=== PATIENT | male | born 1945 | race Caucasian/White ===

== ENCOUNTER 2017-03-07 09:28 | Emergency (ER) | payer MEDICARE, BC ==
[2017-03-07] MEDS ORDERED: Nitroglycerin 0.4 MG Tab.SL SL ONE (09:51)
--- NOTE | 2017-03-07 11:03 | EDM.PDOC ---
[id number] 4d CHEST PAIN Time Seen by Provider: 03/07/17 09:50 Source of Information: Reports: Patient, Family History Limitations: Reports: No limitations - History of Present Illness INITIAL COMMENTS - FREE TEXT/NARRATIVE: 71-year-old male who has had chest pain off and on chronically, he had 9 cardiac stents placed and eventually had bypass grafting last fall. Unfortunately his chest pain continues after the bypass, it is intermittent and left-sided and does not seem to be related to activity. 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 Today while in cardiac rehabilitation he was having more pain and it was more persistent than usual, and he mentioned he had pain last evening as well so they sent him to the emergency room for evaluation. He has no shortness of breath, nausea or vomiting, the pain sometimes radiates to his back , to his right chest and at times to his shoulder. He was very active yesterday working in the yard and was lifting some fairly heavy objects into his pickup. Location: Reports: chest Severity: mild Improves with: Reports: None Worsens with: Reports: None Context: Reports: Lifting Associated Symptoms: Reports: diaphoresis (He did experience some diaphoresis last evening but was also anxious which is another recurring symptoms). Denies : fever/chills, loss of appetite, malaise, nausea/vomiting, shortness of breath chest Pain Score (Numeric/FACES): 5 - Related Data Allergies Allergy/AdvReac Type Severity Reaction Status Date / Time dipyridamole Allergy Unknown Rash Verified 03/07/17 09:45 droperidol Allergy Unknown Cannot Verified 03/07/17 09:45 Remember hydrochlorothiazide Allergy Unknown Rash Verified 03/07/17 09:45 hydroxyzine Allergy Unknown Cannot Verified 03/07/17 09:45 Remember hydroxyzine HCl Allergy Unknown Cannot Verified 03/07/17 09:45 [From Vistaril] Remember hydroxyzine pamoate Allergy Unknown Cannot Verified 03/07/17 09:45 [From Vistaril] Remember Sulfa (Sulfonamide Allergy Unknown Rash Verified 03/07/17 09:45 Antibiotics) vancomycin Allergy Unknown Cannot Verified 03/07/17 09:45 Remember Iodinated Contrast Media - Allergy Hives Verified 03/07/17 09:45 Oral and [Iodinated Contrast Media - IV Dye] cisapride [Cisapride] AdvReac Unknown Slurred Verified 03/07/17 09:45 Speech cisapride monohydrate AdvReac Unknown Slurred Verified 03/07/17 09:45 [From Propulsid] Speech hydrocodone AdvReac Unknown Tachycardia Verified 03/07/17 09:45 morphine AdvReac Unknown red arm at Verified 03/07/17 09:45 iv site nifedipine [From Procardia] AdvReac Unknown Tachycardia Verified 03/07/17 09:45 Krzkrqk-Xwo-Pgq Reductase AdvReac Unknown Muscle Verified 03/07/17 09:45 Inhibitor Aches cyclobenzaprine HCl AdvReac Blurred Verified 03/07/17 09:45 [From Flexeril] Vision gabapentin [From Neurontin] AdvReac Hallucinati Verified 03/07/17 09:45 ons Home Meds: Home Meds Lansoprazole [Prevacid] 30 mg PO BID 03/03/14 [History] LORazepam [Ativan] 0.5 - 1 tab PO Q6H PRN 05/08/14 [History] Clopidogrel [Plavix] 1 tab PO DAILY 09/05/15 [History] Metoprolol Succinate [Toprol XL] 200 mg PO BID tab.er 11/19/15 [Rx] Nitroglycerin [Nitrostat] 0.4 mg SL ASDIRECTED PRN #0 tab.sl 11/19/15 [Rx] Rosuvastatin [Crestor] 20 mg PO BEDTIME tablet 11/19/15 [Rx] Acetaminophen [Non-Aspirin Pain Relief] 650 mg PO Q6H PRN 12/25/15 [History] Ascorbate Calcium [Vitamin C] 500 mg PO DAILY 12/25/15 [History] Cholecalciferol (Vitamin D3) [Vitamin D3] 2,000 units PO DAILY 12/25/15 [History ] Cyanocobalamin (Vitamin B-12) [B-12] 1,000 mcg PO DAILY 12/25/15 [History] Furosemide 20 mg PO DAILY PRN 12/25/15 [History] HYDROmorphone HCl [Dilaudid] 2 mg PO Q6H PRN 12/25/15 [History] Lisinopril 10 mg PO DAILY 12/25/15 [History] Multivitamin [Multivitamins] 1 cap PO DAILY 12/25/15 [History] Temazepam 15 mg PO BEDTIME 12/25/15 [History] Warfarin [Coumadin] 2.5 mg PO DAILY 12/25/15 [History] Warfarin [Coumadin] 3 mg PO ASDIRECTED 12/25/15 [History] lamoTRIgine [Lamictal] 100 mg PO DAILY 12/25/15 [History] glipiZIDE [Glucotrol XL] 10 mg PO BID 02/03/16 [History] Topiramate [Topamax] 100 mg PO DAILY 03/07/17 [History] Past Medical History HEENT History: Reports: Impaired vision, Other (see below) Other HEENT History: ringing in right ear. tunnel vision post cva Cardiovascular History: Reports: Angina, Heart valve replacement, High cholesterol, Hypertension, [place], Stents Other Cardiovascular History: 08/22/15 2 stents and 3 more stents .aortic valve in 1974 and 1991. last stents in August, total now. angio 01/30/16 Respiratory History: Reports: Sleep apnea Other Respiratory History: Cpap Gastrointestinal History: Reports: Other (see below) Other Gastrointestinal History: drainage of Lymphocele in in february 2015 and june 2015 in abd Genitourinary History: Reports: Prostate disorder Musculoskeletal History: Reports: Fracture, Other (see below) Other Musculoskeletal History: fx collarbone, fx femur Neurological History: Reports: CVA, Seizure Other Neuro History: cva 2013 Psychiatric History: Reports: Anxiety, Depression Endocrine/Metabolic History: Reports: Diabetes, type II Hematologic History: Reports: Blood transfusion(s) - Infectious Disease History Infectious Disease History: Reports: Chicken pox Other Infectious Disease History: unknown - Past Surgical History Cardiovascular Surgical History: Reports: Coronary artery stent, Valve replacement GI Surgical History: Reports: Cholecystectomy Other Endocrine Surgeries/Procedures: lympho drainage. Musculoskeletal Surgical History: Reports: Hip replacement Other Musculoskeletal Surgeries/Procedures:: right hip 2011 Social & Family History - Tobacco Use Smoking Status *Q: Never Smoker Years of Tobacco use: 2 Used Tobacco, but Quit: Yes Month Tobacco Last Used: Second Hand Smoke Exposure: No - Caffeine Use Caffeine Use: Reports: Coffee - Alcohol Use Days Per Week of Alcohol Use: 1 Number of Drinks Per Day: 2 Total Drinks Per Week: 2 - Recreational Drug Use Recreational Drug Use: No ED ROS GENERAL - Review of Systems Review Of Systems: See Below Constitutional: Denies: fever, chills, malaise HEENT: Reports: No symptoms Respiratory: Denies: Shortness of Breath Cardiovascular: Reports: Chest pain GI/Abdominal: Denies: Abdominal pain, Nausea, Vomiting : Reports: no symptoms Musculoskeletal: Reports: no symptoms Skin: Reports: pallor, diaphoresis (Last evening) Neurological: Denies: Headache Psychiatric: Reports: Anxiety ED EXAM, GENERAL - Physical Exam Exam: See Below Exam Limited By: No limitations General Appearance: alert, no apparent distress Eye Exam: bilateral eye: normal inspection Respiratory/Chest: no respiratory distress, lungs clear Cardiovascular: regular rate, rhythm. No: extra beats GI/Abdominal: soft, non tender Extremities: normal inspection. No: pedal edema Neurological: alert, oriented, no motor/sensory deficits Psychiatric: anxious Skin Exam: Warm, Dry EKG INTERPRETATION EKG Date: 03/07/17 Rhythm: NSR QRS: RBBB (Consistent with past EKGs, no change) Course - Vital Signs Last Recorded V/S: Last Vital Signs Temp 96.6 F 03/07/17 09:43 Pulse 71 03/07/17 10:09 Resp 12 03/07/17 11:08 BP 140/67 03/07/17 11:08 Pulse Ox 96 03/07/17 11:08 - Orders/Labs/Meds Orders: Active Orders 24 hr Category Date Time Status EKG Documentation Completion [RC] ASDIRECTED Care 03/07/17 09:51 Active EKG 12 Lead [EK] Routine Ther 03/07/17 09:51 Ordered Labs: Laboratory Tests 03/07/17 03/07/17 Range/Units 10:03 10:03 WBC 4.2 L (4.5-11.0) K/uL RBC 5.10 (4.30-5.90) M/uL Hgb 15.3 H D (12.0-15.0) g/dL Hct 46.6 (40.0-54.0) % MCV 91 (80-98) fL MCH 30 (27-31) pg MCHC 33 (32-36) % Plt Count 173 (150-400) K/uL Neut % (Auto) 42 (36-66) % Lymph % (Auto) 33 (24-44) % [place] % (Auto) 17 H (2-6) % Eos % (Auto) 5 H (2-4) % Baso % (Auto) 2 H (0-1) % Sodium 141 (140-148) mmol/L Potassium 4.1 (3.6-5.2) mmol/L Chloride 108 (100-108) mmol/L Carbon Dioxide 23 (21-32) mmol/L Anion Gap 10.3 (5.0-14.0) mmol/L BUN 21 H (7-18) mg/dL Creatinine 1.1 (0.8-1.3) mg/dL Est Cr Clr Drug Dosing TNP Estimated GFR (MDRD) > 60 (>60) Glucose 139 H (74-106) mg/dL Calcium 9.1 (8.5-10.1) mg/dL Troponin I < 0.017 (0.000-0.056) ng/mL Meds: Medications Discontinued Medications Generic Name Dose Route Start Last Admin Trade Name Freq PRN Reason Stop Dose Admin Nitroglycerin 0.4 mg 03/07/17 09:51 03/07/17 09:57 Nitrostat SL 03/07/17 09:52 0.4 mg ONETIME ONE Administration - Re-Assessments/Exams Free Text/Narrative Re-Assessment/Exam: 03/07/17 11:38 EKG was stable and consistent with past EKGs. We tried a sublingual nitroglycerin which actually increased his pain for 10-15 minutes, and then improved but then returned to his previous level that he was transferred to the emergency room for. He looked entirely comfortable throughout his ER visit. Troponin was 0, rest of his labs were reassuring. Patient was discharged with 12 doses of 2 mg Dilaudid that can be taken as needed, these have been very helpful for him in the past. He can return anytime if worsening. Departure - Departure Time of Disposition: 11:18 Disposition: Home, Self-Care 01 Condition: good Clinical Impression: Acute chest wall pain, Atypical chest pain Instructions: Nonspecific Chest Pain, Flin-yb-Ozbs, Angina Pectoris, Easy-to- Read Referrals: Chano Esparza MD [Primary Care Provider] - Forms: ED Department Discharge Care Plan Goals: Continue your current medications and add Dilaudid for pain if needed. Increase activity as tolerated and return anytime if worsening or concerns. - My Orders Last 24 Hours: My Active Orders 03/07/17 09:51 EKG Documentation Completion [RC] ASDIRECTED EKG 12 Lead [EK] Routine - Assessment/Plan Last 24 Hours: My Active Orders 03/07/17 09:51 EKG Documentation Completion [RC] ASDIRECTED EKG 12 Lead [EK] Routine
[2017-03-07 11:17] VITALS: BP 140/67
== END 2017-03-07 11:10 | disposition home or self-care (01) ==
LOC: JP.ED 09:28
DX: R07.89 Other chest pain (principal); I10 Essential (primary) hypertension; E78.00 Pure hypercholesterolemia, unspecified; E11.9 Type 2 diabetes mellitus without complications; Z95.2 Presence of prosthetic heart valve; Z87.891 Personal history of nicotine dependence; Z90.49 Acquired absence of other specified parts of digestive tract; Z86.73 Personal history of transient ischemic attack (TIA), and cerebral infarction without residual deficits; Z96.649 Presence of unspecified artificial hip joint; Z79.01 Long term (current) use of anticoagulants; Z88.6 Allergy status to analgesic agent; Z88.2 Allergy status to sulfonamides; Z88.8 Allergy status to other drugs, medicaments and biological substances; Z79.899 Other long term (current) drug therapy; Z79.84 Long term (current) use of oral hypoglycemic drugs; Z91.041 Radiographic dye allergy status
CPT/HCPCS: 36415; 80048; 84484; 85025; 93005; 99285; A9270; 93010; 99284

== ENCOUNTER 2017-03-09 10:44 | Emergency (ER) | payer MEDICARE, BC ==
[2017-03-09] MEDS ORDERED: Aspirin 81 MG Tab.Chew PO ONE (10:55)
[2017-03-09] MEDS ORDERED: Nitroglycerin 0.4 MG Tab.SL SL ONE (11:06)
--- NOTE | 2017-03-09 11:08 | EDM.PDOC ---
ED HISTORY OF PRESENT ILLNESS - General Chief Complaint: Chest Pain Stated Complaint: CHEST DISCOMFORT Time Seen by Provider: 03/09/17 11:04 Source: Reports: Patient, Family History Limitations: Reports: No limitations - History of Present Illness INITIAL COMMENTS - FREE TEXT/NARRATIVE: pt has had chest pain since he left the er on Friday. He has been sob. He has not beeen sweaty. He has had 3 nitros prior to arrival and he got some relief but his pain remains at a 6. He had a bypass done in Jul of this year. Timing/Duration: Reports: Day(s):, Waxing/waning Severity: moderate Location, General: Reports: chest Associated Symptoms: Reports: chest pain - Related Data Allergies/ADRs: Allergies Allergy/AdvReac Type Severity Reaction Status Date / Time dipyridamole Allergy Unknown Rash Verified 03/09/17 10:50 droperidol Allergy Unknown Cannot Verified 03/09/17 10:50 Remember hydrochlorothiazide Allergy Unknown Rash Verified 03/09/17 10:50 hydroxyzine Allergy Unknown Cannot Verified 03/09/17 10:50 Remember hydroxyzine HCl Allergy Unknown Cannot Verified 03/09/17 10:50 [From Vistaril] Remember hydroxyzine pamoate Allergy Unknown Cannot Verified 03/09/17 10:50 [From Vistaril] Remember Sulfa (Sulfonamide Allergy Unknown Rash Verified 03/09/17 10:50 Antibiotics) vancomycin Allergy Unknown Cannot Verified 03/09/17 10:50 Remember Iodinated Contrast Media - Allergy Hives Verified 03/09/17 10:50 Oral and [Iodinated Contrast Media - IV Dye] cisapride [Cisapride] AdvReac Unknown Slurred Verified 03/09/17 10:50 Speech cisapride monohydrate AdvReac Unknown Slurred Verified 03/09/17 10:50 [From Propulsid] Speech hydrocodone AdvReac Unknown Tachycardia Verified 03/09/17 10:50 morphine AdvReac Unknown red arm at Verified 03/09/17 10:50 iv site nifedipine [From Procardia] AdvReac Unknown Tachycardia Verified 03/09/17 10:50 Gawrzta-Dwt-Gvf Reductase AdvReac Unknown Muscle Verified 03/09/17 10:50 Inhibitor Aches cyclobenzaprine HCl AdvReac Blurred Verified 03/09/17 10:50 [From Flexeril] Vision gabapentin [From Neurontin] AdvReac Hallucinati Verified 03/09/17 10:50 ons Home Meds: Home Meds Lansoprazole [Prevacid] 30 mg PO BID 03/03/14 [History] LORazepam [Ativan] 0.5 - 1 tab PO Q6H PRN 05/08/14 [History] Clopidogrel [Plavix] 1 tab PO DAILY 09/05/15 [History] Metoprolol Succinate [Toprol XL] 200 mg PO BID tab.er 11/19/15 [Rx] Nitroglycerin [Nitrostat] 0.4 mg SL ASDIRECTED PRN #0 tab.sl 11/19/15 [Rx] Rosuvastatin [Crestor] 20 mg PO BEDTIME tablet 11/19/15 [Rx] Acetaminophen [Non-Aspirin Pain Relief] 650 mg PO Q6H PRN 12/25/15 [History] Ascorbate Calcium [Vitamin C] 500 mg PO DAILY 12/25/15 [History] Cholecalciferol (Vitamin D3) [Vitamin D3] 2,000 units PO DAILY 12/25/15 [History ] Cyanocobalamin (Vitamin B-12) [B-12] 1,000 mcg PO DAILY 12/25/15 [History] Furosemide 20 mg PO DAILY PRN 12/25/15 [History] HYDROmorphone HCl [Dilaudid] 2 mg PO Q6H PRN 12/25/15 [History] Lisinopril 10 mg PO DAILY 12/25/15 [History] Multivitamin [Multivitamins] 1 cap PO DAILY 12/25/15 [History] Temazepam 15 mg PO BEDTIME 12/25/15 [History] Warfarin [Coumadin] 2.5 mg PO DAILY 12/25/15 [History] Warfarin [Coumadin] 3 mg PO ASDIRECTED 12/25/15 [History] lamoTRIgine [Lamictal] 100 mg PO DAILY 12/25/15 [History] glipiZIDE [Glucotrol XL] 10 mg PO BID 02/03/16 [History] Topiramate [Topamax] 100 mg PO DAILY 03/07/17 [History] Past Medical History HEENT History: Reports: Impaired vision, Other (see below) Other HEENT History: ringing in right ear. tunnel vision post cva Cardiovascular History: Reports: Angina, Heart valve replacement, High cholesterol, Hypertension, [place], Stents Other Cardiovascular History: 08/22/15 2 stents and 3 more stents .aortic valve in 1974 and 1991. last stents in 2014, total now. angio 01/30/16 Respiratory History: Reports: Sleep apnea Other Respiratory History: Cpap Gastrointestinal History: Reports: Other (see below) Other Gastrointestinal History: drainage of Lymphocele in in february 2015 and june 2015 in abd Genitourinary History: Reports: Prostate disorder Musculoskeletal History: Reports: Fracture, Other (see below) Other Musculoskeletal History: fx collarbone, fx femur Neurological History: Reports: CVA, Seizure Other Neuro History: cva 2013 Psychiatric History: Reports: Anxiety, Depression Endocrine/Metabolic History: Reports: Diabetes, type II Hematologic History: Reports: Blood transfusion(s) - Infectious Disease History Infectious Disease History: Reports: Chicken pox Other Infectious Disease History: unknown - Past Surgical History Cardiovascular Surgical History: Reports: Coronary artery stent, Valve replacement GI Surgical History: Reports: Cholecystectomy Other Endocrine Surgeries/Procedures: lympho drainage. Musculoskeletal Surgical History: Reports: Hip replacement Other Musculoskeletal Surgeries/Procedures:: right hip 2011 Social & Family History - Tobacco Use Smoking Status *Q: Never Smoker Years of Tobacco use: 2 Used Tobacco, but Quit: Yes Month Tobacco Last Used: Second Hand Smoke Exposure: No - Caffeine Use Caffeine Use: Reports: Coffee - Alcohol Use Days Per Week of Alcohol Use: 1 Number of Drinks Per Day: 2 Total Drinks Per Week: 2 - Recreational Drug Use Recreational Drug Use: No ED ROS GENERAL - Review of Systems Review Of Systems: See Below Constitutional: Reports: no symptoms HEENT: Reports: No symptoms Respiratory: Reports: Shortness of Breath Cardiovascular: Reports: Chest pain, Other ( pain in left chest and radiates to his neck. ) GI/Abdominal: Reports: No symptoms : Reports: no symptoms Musculoskeletal: Reports: no symptoms Skin: Reports: no symptoms ED EXAM, GENERAL - Physical Exam Exam: See Below Free Text/Narrative:: P returns with chest pain. He has had pain since Friday. He has been sob. He took 3 nitros and got some relief. Exam Limited By: No limitations General Appearance: alert, moderate distress, other ( rating his pain at a 5. ) Ears: normal TMs Nose: normal inspection Throat/Mouth: Normal inspection Head: atraumatic Neck: normal inspection Respiratory/Chest: no respiratory distress, rales, other (pt has a few rales at the lung bases. ) Cardiovascular: regular rate, rhythm GI/Abdominal: soft, non tender (Male) Exam: Deferred Rectal (Males) Exam: Deferred Back Exam: normal inspection Extremities: normal inspection, other (pulses plus 2) Neurological: alert, oriented, normal cognition Psychiatric: anxious Course - Vital Signs Last Recorded V/S: Last Vital Signs Temp 36.3 C 03/09/17 10:55 Pulse 74 03/09/17 11:40 Resp 16 03/09/17 11:14 BP 129/70 03/09/17 11:40 Pulse Ox 94 L 03/09/17 11:40 - Orders/Labs/Meds Orders: Active Orders 24 hr Category Date Time Status EKG Documentation Completion [RC] ASDIRECTED Care 03/09/17 10:53 Active Chest 1V Frontal [CR] Stat Exams 03/09/17 11:03 Taken Nitroglycerin/D5W [Nitroglycerin 25 MG/D5W 250 ML] Med 03/09/17 11:30 Active 25 mg in 250 ml IV TITRATE EKG 12 Lead [EK] Routine Ther 03/09/17 10:53 Ordered Medication Orders Nitroglycerin/Dextrose (Nitroglycerin 25 Mg/D5w 250 Ml) 25 mg in 250 mls @ 6 mls/hr IV TITRATE DEVON; 10 MCG/MIN PRN Reason: Protocol Last Admin: 03/09/17 11:24 Dose: 10 mcg/min, 6 mls/hr Labs: Laboratory Tests 03/09/17 03/09/17 03/09/17 Range/Units 10:59 10:59 10:59 WBC 4.5 (4.5-11.0) K/uL RBC 4.96 (4.30-5.90) M/uL Hgb 14.9 (12.0-15.0) g/dL Hct 45.5 (40.0-54.0) % MCV 92 (80-98) fL MCH 30 (27-31) pg MCHC 33 (32-36) % Plt Count 182 (150-400) K/uL Neut % (Auto) 49 (36-66) % Lymph % (Auto) 31 (24-44) % [place] % (Auto) 14 H (2-6) % Eos % (Auto) 5 H (2-4) % Baso % (Auto) 1 (0-1) % PT (9.5-12.0) sec INR (0.80-1.20) Sodium 143 (140-148) mmol/L Potassium 4.0 (3.6-5.2) mmol/L Chloride 106 (100-108) mmol/L Carbon Dioxide 25 (21-32) mmol/L Anion Gap 11.7 (5.0-14.0) mmol/L BUN 26 H (7-18) mg/dL Creatinine 1.3 (0.8-1.3) mg/dL Est Cr Clr Drug Dosing 52.12 mL/min Estimated GFR (MDRD) 54 L (>60) Glucose 231 H (74-106) mg/dL Calcium 8.5 (8.5-10.1) mg/dL Total Bilirubin 0.7 (0.2-1.0) mg/dL AST 28 (15-37) U/L ALT 35 (12-78) U/L Alkaline Phosphatase 96 (46-116) U/L Creatine Kinase 174 (39-308) U/L Troponin I < 0.017 (0.000-0.056) ng/mL Dpt-P-Rqqhgxslsgl Pept (5-125) pg/mL Total Protein 7.4 (6.4-8.2) g/dL Albumin 3.6 (3.4-5.0) g/dL Globulin 3.8 H (2.3-3.5) g/dL Albumin/Globulin Ratio 1.0 L (1.2-2.2) 03/09/17 03/09/17 Range/Units 10:59 10:59 WBC (4.5-11.0) K/uL RBC (4.30-5.90) M/uL Hgb (12.0-15.0) g/dL Hct (40.0-54.0) % MCV (80-98) fL MCH (27-31) pg MCHC (32-36) % Plt Count (150-400) K/uL Neut % (Auto) (36-66) % Lymph % (Auto) (24-44) % [place] % (Auto) (2-6) % Eos % (Auto) (2-4) % Baso % (Auto) (0-1) % PT 49.4 H (9.5-12.0) sec INR 4.45 H* D (0.80-1.20) Sodium (140-148) mmol/L Potassium (3.6-5.2) mmol/L Chloride (100-108) mmol/L Carbon Dioxide (21-32) mmol/L Anion Gap (5.0-14.0) mmol/L BUN (7-18) mg/dL Creatinine (0.8-1.3) mg/dL Est Cr Clr Drug Dosing mL/min Estimated GFR (MDRD) (>60) Glucose (74-106) mg/dL Calcium (8.5-10.1) mg/dL Total Bilirubin (0.2-1.0) mg/dL AST (15-37) U/L ALT (12-78) U/L Alkaline Phosphatase (46-116) U/L Creatine Kinase (39-308) U/L Troponin I (0.000-0.056) ng/mL Haj-S-Nrrwanffoes Pept 192 H (5-125) pg/mL Total Protein (6.4-8.2) g/dL Albumin (3.4-5.0) g/dL Globulin (2.3-3.5) g/dL Albumin/Globulin Ratio (1.2-2.2) Meds: Medications Generic Name Dose Route Start Last Admin Trade Name Freq PRN Reason Stop Dose Admin Nitroglycerin/Dextrose 25 mg in 250 mls @ 6 mls/hr 03/09/17 11:30 03/09/17 11 :24 Nitroglycerin 25 Mg/D5w 250 Ml IV 10 mcg/min TITRATE DEVON 6 mls/hr Protocol Administration 10 MCG/MIN Discontinued Medications Generic Name Dose Route Start Last Admin Trade Name Freq PRN Reason Stop Dose Admin Aspirin 324 mg 03/09/17 10:55 03/09/17 11:00 Aspirin PO 03/09/17 10:56 324 mg ONETIME ONE Administration Hydromorphone HCl 0.5 mg 03/09/17 11:16 03/09/17 11:18 Dilaudid IVPUSH 03/09/17 11:17 0.5 mg ONETIME ONE Administration Hydromorphone HCl 0.5 mg 03/09/17 11:55 Dilaudid IVPUSH 03/09/17 11:56 ONETIME ONE Nitroglycerin 0.4 mg 03/09/17 11:06 03/09/17 11:08 Nitrostat SL 03/09/17 11:07 0.4 mg ONETIME ONE Administration - Re-Assessments/Exams Free Text/Narrative Re-Assessment/Exam: 03/09/17 11:19 pt has an EKG which has not changed since Friday. He continues to rate his pain as a 6-7. He was given 1 more nitro. He had 3 just prior to arrival. He had minimal relief. He was given baby asa , a nitro drip was started. He was given dilaudid .5 Iv. His chest xray does not show effusions or a infiltrate. 03/09/17 11:56 pt has pain at a 3 after the dilaudid. he had normal cardiac enzymes. His bs is 231, his inr is greater than 4 at this time. Departure - Departure Time of Disposition: 11:58 Disposition: Home, Self-Care 01 Condition: fair Clinical Impression: Atypical chest pain, Coronary artery disease Referrals: PCP,None [Primary Care Provider] - Forms: ED Department Discharge Care Plan Goals: transfer to - My Orders Last 24 Hours: My Active Orders 03/09/17 10:53 EKG Documentation Completion [RC] ASDIRECTED EKG 12 Lead [EK] Routine 03/09/17 11:03 Chest 1V Frontal [CR] Stat 03/09/17 11:30 Nitroglycerin/D5W [Nitroglycerin 25 MG/D5W 250 ML] 25 mg in 250 ml IV TITRATE - Assessment/Plan Last 24 Hours: My Active Orders 03/09/17 10:53 EKG Documentation Completion [RC] ASDIRECTED EKG 12 Lead [EK] Routine 03/09/17 11:03 Chest 1V Frontal [CR] Stat 03/09/17 11:30 Nitroglycerin/D5W [Nitroglycerin 25 MG/D5W 250 ML] 25 mg in 250 ml IV TITRATE
[2017-03-09] MEDS ORDERED: HYDROmorphone 0.5 MG/0.5 ML Syringe IVPUSH ONE ×2 (11:16→11:55)
[2017-03-09] MEDS ORDERED: Nitroglycerin/D5W 25 MG/250 ML BOTTLE IV SCH (11:30)
[2017-03-09 12:08] VITALS: BP 125/69
--- NOTE | 2017-03-10 10:11 | CR ---
Portable chest Comparison: November 2010. The heart and vascular structures are within normal limits. There are no infiltrates or effusions. T here are intact sternal wires. There has been development of a nodular density in the central right lung. The density measures 1.4 cm. There are calcified granulomas in the left lung base. Impression: 1. No acute findings of the chest. 2. Possible pulmonary nodule central right lung. A unenhanced chest CT is recommended for further ev aluation.
== END 2017-03-09 12:40 ==
LOC: JP.ED 10:44
DX: R07.89 Other chest pain (principal); I25.10 Atherosclerotic heart disease of native coronary artery without angina pectoris; I20.9 Angina pectoris, unspecified; I25.2 Old myocardial infarction; R06.02 Shortness of breath; I10 Essential (primary) hypertension; E78.00 Pure hypercholesterolemia, unspecified; F41.9 Anxiety disorder, unspecified; F32.9 Major depressive disorder, single episode, unspecified; E11.9 Type 2 diabetes mellitus without complications; Z79.01 Long term (current) use of anticoagulants; Z79.02 Long term (current) use of antithrombotics/antiplatelets; Z79.899 Other long term (current) drug therapy; Z88.1 Allergy status to other antibiotic agents; Z88.2 Allergy status to sulfonamides; Z88.5 Allergy status to narcotic agent; Z88.8 Allergy status to other drugs, medicaments and biological substances; Z91.041 Radiographic dye allergy status; Z95.5 Presence of coronary angioplasty implant and graft; Z95.2 Presence of prosthetic heart valve; Z90.49 Acquired absence of other specified parts of digestive tract; Z96.641 Presence of right artificial hip joint
CPT/HCPCS: 36415; 71010; 80053; 82550; 83880; 84484; 85025; 85610; 93005; 93010; 96374; 96376; 99284; 99285; A9270; J1170

== ENCOUNTER 2017-06-08 08:43 | Emergency (ER) | payer MEDICARE, BC ==
[2017-06-08 08:50] VITALS: BP 186/90
--- NOTE | 2017-06-08 09:23 | EDM.PDOC ---
[id number]: SOB/FLUID RETENTION Time Seen by Provider: 06/08/17 09:00 Source of Information: Reports: Patient, Family History Limitations: Reports: No Limitations - History of Present Illness INITIAL COMMENTS - FREE TEXT/NARRATIVE: 71-year-old male with chronic CHF has been more short of breath over the last few nights. His is given him some extra Lasix and is now feeling much better but she just wanted him checked. No significant chest pain. He feels it' s difficult to lay flat. No peripheral edema. Onset: Gradual (Over the past several days) Severity: Moderate Improves with: Reports: Other (Diuretic seems to improve his condition) Worsens with: Reports: Other (Laying flat is much worse) Associated Symptoms: Reports: Shortness of Breath. Denies: Chest Pain, Cough, Fever/Chills Left Middle Chest Pain Score (Numeric/FACES): 5 - Related Data Allergies Allergy/AdvReac Type Severity Reaction Status Date / Time dipyridamole Allergy Unknown Rash Verified 03/09/17 10:50 droperidol Allergy Unknown Cannot Verified 03/09/17 10:50 Remember hydrochlorothiazide Allergy Unknown Rash Verified 03/09/17 10:50 hydroxyzine Allergy Unknown Cannot Verified 03/09/17 10:50 Remember hydroxyzine HCl Allergy Unknown Cannot Verified 03/09/17 10:50 [From Vistaril] Remember hydroxyzine pamoate Allergy Unknown Cannot Verified 03/09/17 10:50 [From Vistaril] Remember Sulfa (Sulfonamide Allergy Unknown Rash Verified 03/09/17 10:50 Antibiotics) vancomycin Allergy Unknown Cannot Verified 03/09/17 10:50 Remember Iodinated Contrast- Oral and Allergy Hives Verified 03/09/17 10:50 IV Dye [Iodinated Contrast Media - IV Dye] cisapride [Cisapride] AdvReac Unknown Slurred Verified 03/09/17 10:50 Speech cisapride monohydrate AdvReac Unknown Slurred Verified 03/09/17 10:50 [From Propulsid] Speech hydrocodone AdvReac Unknown Tachycardia Verified 03/09/17 10:50 morphine AdvReac Unknown red arm at Verified 03/09/17 10:50 iv site nifedipine [From Procardia] AdvReac Unknown Tachycardia Verified 03/09/17 10:50 Akusdec-Gcl-Eab Reductase AdvReac Unknown Muscle Verified 03/09/17 10:50 Inhibitor Aches cyclobenzaprine HCl AdvReac Blurred Verified 03/09/17 10:50 [From Flexeril] Vision gabapentin [From Neurontin] AdvReac Hallucinati Verified 03/09/17 10:50 ons Home Meds: Home Meds Lansoprazole [Prevacid] 30 mg PO BID 03/03/14 [History] LORazepam [Ativan] 0.5 - 1 tab PO Q6H PRN 05/08/14 [History] Clopidogrel [Plavix] 1 tab PO DAILY 09/05/15 [History] Metoprolol Succinate [Toprol XL] 200 mg PO BID tab.er 11/19/15 [Rx] Nitroglycerin [Nitrostat] 0.4 mg SL ASDIRECTED PRN #0 tab.sl 11/19/15 [Rx] Rosuvastatin [Crestor] 20 mg PO BEDTIME tablet 11/19/15 [Rx] Acetaminophen [Non-Aspirin Pain Relief] 650 mg PO Q6H PRN 12/25/15 [History] Ascorbate Calcium [Vitamin C] 500 mg PO DAILY 12/25/15 [History] Cholecalciferol (Vitamin D3) [Vitamin D3] 2,000 units PO DAILY 12/25/15 [History ] Cyanocobalamin (Vitamin B-12) [B-12] 1,000 mcg PO DAILY 12/25/15 [History] Furosemide 20 mg PO DAILY PRN 12/25/15 [History] HYDROmorphone HCl [Dilaudid] 2 mg PO Q6H PRN 12/25/15 [History] Lisinopril 5 mg PO BID 12/25/15 [History] Multivitamin [Multivitamins] 1 cap PO DAILY 12/25/15 [History] Temazepam 15 mg PO BEDTIME 12/25/15 [History] Warfarin [Coumadin] 3 mg PO DAILY 12/25/15 [History] Warfarin [Coumadin] 3.5 mg PO ASDIRECTED 12/25/15 [History] lamoTRIgine [Lamictal] 100 mg PO DAILY 12/25/15 [History] glipiZIDE [Glucotrol XL] 10 mg PO BID 02/03/16 [History] Isosorbide Mononitrate [Isosorbide Mononitrate ER] 30 mg PO DAILY 06/08/17 [ History] amLODIPine [Norvasc] 2.5 mg PO DAILY 06/08/17 [History] Past Medical History HEENT History: Reports: Impaired Vision, Other (See Below) Other HEENT History: ringing in right ear. tunnel vision post cva Cardiovascular History: Reports: Angina, Heart Valve Replacement, High Cholesterol, Hypertension, [place], Stents Other Cardiovascular History: 08/22/15 2 stents and 3 more stents .aortic valve in 1974 and 1991. last stents in August, total now. angio 01/30/16 Respiratory History: Reports: Sleep Apnea Other Respiratory History: Cpap Gastrointestinal History: Reports: Other (See Below) Other Gastrointestinal History: drainage of Lymphocele in in february 2015 and june 2015 in abd Genitourinary History: Reports: Prostate Disorder Musculoskeletal History: Reports: Fracture, Other (See Below) Other Musculoskeletal History: fx collarbone, fx femur Neurological History: Reports: CVA, Seizure Other Neuro History: cva 2013 Psychiatric History: Reports: Anxiety, Depression Endocrine/Metabolic History: Reports: Diabetes, Type II Hematologic History: Reports: Blood Transfusion(s) - Infectious Disease History Infectious Disease History: Reports: Chicken Pox, Measles, Mumps Other Infectious Disease History: unknown - Past Surgical History Cardiovascular Surgical History: Reports: Coronary Artery Stent, Valve Replacement Musculoskeletal Surgical History: Reports: Hip Replacement Social & Family History - Tobacco Use Smoking Status *Q: Never Smoker Years of Tobacco use: 2 Used Tobacco, but Quit: Yes Month Tobacco Last Used: Second Hand Smoke Exposure: No - Caffeine Use Caffeine Use: Reports: Coffee - Alcohol Use Days Per Week of Alcohol Use: 1 Number of Drinks Per Day: 2 Total Drinks Per Week: 2 - Recreational Drug Use Recreational Drug Use: No ED ROS GENERAL - Review of Systems Review Of Systems: See Below Constitutional: Denies: Fever, Chills Respiratory: Reports: Shortness of Breath. Denies: Cough Cardiovascular: Denies: Chest Pain GI/Abdominal: Denies: Abdominal Pain, Nausea, Vomiting Skin: Reports: No Symptoms Neurological: Reports: No Symptoms ED EXAM, GENERAL - Physical Exam Exam: See Below Exam Limited By: No Limitations General Appearance: Alert, No Apparent Distress Respiratory/Chest: No Respiratory Distress, Lungs Clear Cardiovascular: Regular Rate, Rhythm GI/Abdominal: Non-Tender Extremities: Normal Inspection. No: Pedal Edema Neurological: Alert, Oriented Psychiatric: Normal Affect, Normal Mood Course - Vital Signs Last Recorded V/S: Last Vital Signs Temp 97.2 F 06/08/17 08:49 Pulse 70 06/08/17 08:49 Resp 20 06/08/17 08:49 BP 186/90 H 06/08/17 08:49 Pulse Ox 98 06/08/17 08:49 - Orders/Labs/Meds Orders: Active Orders 24 hr Category Date Time Status EKG Documentation Completion [RC] ASDIRECTED Care 06/08/17 09:58 Active EKG 12 Lead [EK] Routine Ther 06/08/17 09:58 Ordered - Re-Assessments/Exams Free Text/Narrative Re-Assessment/Exam: 06/08/17 09:29 Lungs are clear, O2 saturations are 100% on room air and the patient is in no respiratory distress. He has no peripheral edema. EKG shows a stable bundle- branch block. I reassured the patient and his , encouraged her to give him the extra Lasix for just a few more days and return if worsening or concerns. Departure - Departure Time of Disposition: 09:52 Disposition: Home, Self-Care 01 Condition: Good Clinical Impression: Congestive heart failure Qualifiers: Congestive heart failure type: combined Congestive heart failure chronicity: acute on chronic Qualified Code(s): I50.43 - Acute on chronic combined systolic (congestive) and diastolic (congestive) heart failure Instructions: Shortness of Breath, [id number] Referrals: Chano Esparza MD [Primary Care Provider] - Forms: ED Department Discharge Care Plan Goals: Continue with extra Lasix for 2 more days, avoid salt, increase activity as tolerated and return if worsening or concerns. - My Orders Last 24 Hours: My Active Orders 06/08/17 09:58 EKG Documentation Completion [RC] ASDIRECTED EKG 12 Lead [EK] Routine - Assessment/Plan Last 24 Hours: My Active Orders 06/08/17 09:58 EKG Documentation Completion [RC] ASDIRECTED EKG 12 Lead [EK] Routine
== END 2017-06-08 09:40 | disposition home or self-care (01) ==
LOC: JP.ED 08:43
DX: I11.0 Hypertensive heart disease with heart failure (principal); I50.43 Acute on chronic combined systolic (congestive) and diastolic (congestive) heart failure; E78.00 Pure hypercholesterolemia, unspecified; F41.9 Anxiety disorder, unspecified; F32.9 Major depressive disorder, single episode, unspecified; E11.9 Type 2 diabetes mellitus without complications; I25.2 Old myocardial infarction; Z95.5 Presence of coronary angioplasty implant and graft; Z86.73 Personal history of transient ischemic attack (TIA), and cerebral infarction without residual deficits; Z95.2 Presence of prosthetic heart valve; Z96.649 Presence of unspecified artificial hip joint; Z79.01 Long term (current) use of anticoagulants; Z79.02 Long term (current) use of antithrombotics/antiplatelets; Z79.84 Long term (current) use of oral hypoglycemic drugs; Z88.1 Allergy status to other antibiotic agents; Z79.899 Other long term (current) drug therapy; Z88.2 Allergy status to sulfonamides; Z88.5 Allergy status to narcotic agent; Z88.8 Allergy status to other drugs, medicaments and biological substances; Z91.041 Radiographic dye allergy status
CPT/HCPCS: 93005; 93010; 99284; 99285-25

== ENCOUNTER 2018-07-22 09:00 | Emergency (ER) | payer MEDICARE, BC ==
[2018-07-22] MEDS ORDERED: Sodium Chloride 0.9% 10 ML Syringe FLUSH PRN (09:04)
[2018-07-22] MEDS ORDERED: Aspirin 81 MG Tab.Chew PO ONE (09:04)
[2018-07-22] MEDS ORDERED: Nitroglycerin 0.4 MG Tab.SL ONE (09:04)
[2018-07-22] MEDS: Nitroglycerin 0.4 MG Tab.SL SL PRN ×3 (09:08→10:39)
[2018-07-22] MEDS ORDERED: Adenosine 6 MG/2 ML SDV ONE (09:13)
[2018-07-22] MEDS ORDERED: Sodium Chloride 0.9% 1,000 ML IV SCH (09:15)
[2018-07-22] MEDS ORDERED: HYDROmorphone 1 MG/ML Syringe ONE (09:17)
[2018-07-22] MEDS ORDERED: Ibutilide 1 MG/10 ML Vial ONE (09:17)
[2018-07-22] MEDS ORDERED: HYDROmorphone 1 MG/ML Syringe IVPUSH ONE ×3 (09:28→11:02)
[2018-07-22] MEDS ORDERED: Ibutilide 1 MG/10 ML Vial IVPUSH ONE (09:51)
[2018-07-22] MEDS ORDERED: Adenosine 6 MG/2 ML SDV IVPUSH ONE ×2 (09:51)
--- NOTE | 2018-07-22 09:56 | EDM.PDOC ---
ED HPI GENERAL MEDICAL PROBLEM - General Chief Complaint: Chest Pain Stated Complaint: MEDICAL Time Seen by Provider: 07/22/18 09:42 Source of Information: Reports: Patient, Family, RN Notes Reviewed History Limitations: Reports: No Limitations - History of Present Illness INITIAL COMMENTS - FREE TEXT/NARRATIVE: 72-year-old gentleman presents to emergency department day complaint of palpitations and shortness of breath, he has a known history of coronary artery disease as well as valve replacement and coronary artery bypass grafting recently had pacemaker implantation on September 2017. He was at cardiac rehabilitation and they noticed his heart rate was in the 120s. His pacemaker is ventricularly sensed and he uses his [place] S-A node as a drive Chest Pain Score (Numeric/FACES): 3 - Related Data Allergies Allergy/AdvReac Type Severity Reaction Status Date / Time dipyridamole Allergy Unknown Rash Verified 07/22/18 09:47 droperidol Allergy Unknown Cannot Verified 07/22/18 09:47 Remember hydrochlorothiazide Allergy Unknown Rash Verified 07/22/18 09:47 hydroxyzine pamoate Allergy Unknown Cannot Verified 07/22/18 09:47 [From Vistaril] Remember Sulfa (Sulfonamide Allergy Unknown Rash Verified 07/22/18 09:47 Antibiotics) vancomycin Allergy Unknown Cannot Verified 07/22/18 09:47 Remember Iodinated Contrast- Oral and Allergy Hives Verified 07/22/18 09:47 IV Dye [Iodinated Contrast Media - IV Dye] ketamine Allergy Other Verified 07/22/18 12:07 cisapride [Cisapride] AdvReac Unknown Slurred Verified 07/22/18 09:47 Speech cisapride monohydrate AdvReac Unknown Slurred Verified 07/22/18 09:47 [From Propulsid] Speech hydrocodone AdvReac Unknown Tachycardia Verified 07/22/18 09:47 morphine AdvReac Unknown red arm at Verified 07/22/18 09:47 iv site nifedipine [From Procardia] AdvReac Unknown Tachycardia Verified 07/22/18 09:47 Ijzsmgq-Wwj-Ahn Reductase AdvReac Unknown Muscle Verified 07/22/18 09:47 Inhibitor Aches cyclobenzaprine HCl AdvReac Blurred Verified 07/22/18 09:47 [From Flexeril] Vision gabapentin [From Neurontin] AdvReac Hallucinati Verified 07/22/18 09:47 ons Home Meds: Home Meds Lansoprazole [Prevacid] 30 mg PO BID 03/03/14 [History] LORazepam [Ativan] 0.5 - 1 tab PO Q6H PRN 05/08/14 [History] Clopidogrel [Plavix] 1 tab PO DAILY 09/05/15 [History] Nitroglycerin [Nitrostat] 0.4 mg SL ASDIRECTED PRN #0 tab.sl 11/19/15 [Rx] Rosuvastatin [Crestor] 20 mg PO BEDTIME tablet 11/19/15 [Rx] Acetaminophen [Non-Aspirin Pain Relief] 650 mg PO Q6H PRN 12/25/15 [History] Ascorbate Calcium [Vitamin C] 500 mg PO DAILY 12/25/15 [History] Cholecalciferol (Vitamin D3) [Vitamin D3] 2,000 units PO DAILY 12/25/15 [History ] Cyanocobalamin (Vitamin B-12) [B-12] 1,000 mcg PO DAILY 12/25/15 [History] Furosemide 20 mg PO DAILY PRN 12/25/15 [History] HYDROmorphone HCl [Dilaudid] 2 mg PO Q6H PRN 12/25/15 [History] Lisinopril 5 mg PO BID 12/25/15 [History] Multivitamin [Multivitamins] 1 cap PO DAILY 12/25/15 [History] Temazepam 15 mg PO BEDTIME 12/25/15 [History] Warfarin [Coumadin] 2 mg PO DAILY 12/25/15 [History] Warfarin [Coumadin] 3.5 mg PO ASDIRECTED 12/25/15 [History] lamoTRIgine [Lamictal] 100 mg PO DAILY 12/25/15 [History] glipiZIDE [Glucotrol XL] 10 mg PO BID 02/03/16 [History] Isosorbide Mononitrate [Isosorbide Mononitrate ER] 60 mg PO DAILY 06/08/17 [ History] amLODIPine [Norvasc] 2.5 mg PO DAILY 06/08/17 [History] Metoprolol Succinate [Toprol XL] 100 mg PO DAILY 07/22/18 [History] Past Medical History HEENT History: Reports: Impaired Vision, Other (See Below) Other HEENT History: ringing in right ear. tunnel vision post cva Cardiovascular History: Reports: Afib, Angina, Bypass, CAD, Heart Valve Replacement, High Cholesterol, Hypertension, [place], Pacemaker, Stents Other Cardiovascular History: 08/22/15 2 stents and 3 more stents .aortic valve in 1974 and 1991. last stents in 2014, total now. angio 01/30/16 Respiratory History: Reports: Sleep Apnea Other Respiratory History: Cpap Gastrointestinal History: Reports: Other (See Below) Other Gastrointestinal History: drainage of Lymphocele in in february 2015 and june 2015 in abd Genitourinary History: Reports: Prostate Disorder Musculoskeletal History: Reports: Fracture, Other (See Below) Other Musculoskeletal History: fx collarbone, fx femur Neurological History: Reports: CVA, Seizure Other Neuro History: cva 2013 Psychiatric History: Reports: Anxiety, Depression Endocrine/Metabolic History: Reports: Diabetes, Type II Hematologic History: Reports: Blood Transfusion(s) - Infectious Disease History Infectious Disease History: Reports: Chicken Pox, Measles, Mumps Other Infectious Disease History: unknown - Past Surgical History Cardiovascular Surgical History: Reports: Coronary Artery Bypass, Coronary Artery Stent, Percutaneous Transluminal Angioplasty, Valve Replacement, Vascular Surgery Other Cardiovascular Surgeries/Procedures: cabg x 4 Musculoskeletal Surgical History: Reports: Hip Replacement Social & Family History - Tobacco Use Smoking Status *Q: Former Smoker Used Tobacco, but Quit: Yes Month/Year Tobacco Last Used: 60 years - Caffeine Use Caffeine Use: Reports: Coffee - Recreational Drug Use Recreational Drug Use: No ED ROS GENERAL - Review of Systems Review Of Systems: See Below Constitutional: Reports: No Symptoms HEENT: Reports: No Symptoms Respiratory: Reports: Shortness of Breath Cardiovascular: Reports: Chest Pain, Dyspnea on Exertion, Palpitations GI/Abdominal: Reports: No Symptoms : Reports: No Symptoms ED EXAM, GENERAL - Physical Exam Exam: See Below Exam Limited By: No Limitations General Appearance: Alert, Mild Distress Neck: Normal Inspection, Supple, Non-Tender, Full Range of Motion Respiratory/Chest: No Respiratory Distress, Lungs Clear, Normal Breath Sounds, No Accessory Muscle Use Cardiovascular: Tachycardia Course - Vital Signs Last Recorded V/S: Last Vital Signs Temp 97.8 F 07/22/18 09:00 Pulse 92 07/22/18 16:49 Resp 12 07/22/18 16:49 BP 145/72 H 07/22/18 16:49 Pulse Ox 97 07/22/18 16:49 - Orders/Labs/Meds Orders: Active Orders 24 hr Category Date Time Status Cardiac Monitoring [RC] .As Directed Care 07/22/18 09:04 Active EKG Documentation Completion [RC] ASDIRECTED Care 07/22/18 09:05 Active EKG Documentation Completion [RC] ASDIRECTED Care 07/22/18 09:42 Active Peripheral IV Care [RC] . DIRECTED Care 07/22/18 09:05 Active Nitroglycerin [Nitrostat] Med 07/22/18 09:04 Active 0.4 mg SL Q5M PRN Sodium Chloride 0.9% [Normal Saline] 1,000 ml Med 07/22/18 09:15 Active IV ASDIRECTED Sodium Chloride 0.9% [Saline Flush] Med 07/22/18 09:04 Active 10 ml FLUSH ASDIRECTED PRN Peripheral IV Insertion Adult [OM.PC] Stat Oth 07/22/18 09:04 Ordered EKG 12 Lead [EK] Stat Ther 07/22/18 09:05 Ordered EKG 12 Lead [EK] Stat Ther 07/22/18 09:42 Ordered Medication Orders Sodium Chloride (Normal Saline) 1,000 mls @ 125 mls/hr IV ASDIRECTED DEVON Last Admin: 07/22/18 09:18 Dose: 125 mls/hr Nitroglycerin (Nitrostat) 0.4 mg SL Q5M PRN PRN Reason: Chest Pain Stop: 07/23/18 09:05 Last Admin: 07/22/18 10:39 Dose: 0.4 mg Admin: 07/22/18 09:19 Dose: 0.4 mg Admin: 07/22/18 09:08 Dose: 0.4 mg Sodium Chloride (Saline Flush) 10 ml FLUSH ASDIRECTED PRN PRN Reason: Keep Vein Open Labs: Laboratory Tests 07/22/18 07/22/18 07/22/18 Range/Units 09:03 09:03 09:03 WBC 6.0 (4.5-11.0) K/uL RBC 4.88 (4.30-5.90) M/uL Hgb 15.4 H (12.0-15.0) g/dL Hct 45.6 (40.0-54.0) % MCV 93 (80-98) fL MCH 32 H (27-31) pg MCHC 34 (32-36) % Plt Count 190 (150-400) K/uL Neut % (Auto) 71 H (36-66) % Lymph % (Auto) 15 L (24-44) % [place] % (Auto) 12 H (2-6) % Eos % (Auto) 2 (2-4) % Baso % (Auto) 1 (0-1) % PT 34.5 H (9.5-12.0) sec INR 3.36 H (0.80-1.20) Sodium 136 L (140-148) mmol/L Potassium 3.9 (3.6-5.2) mmol/L Chloride 99 L (100-108) mmol/L Carbon Dioxide 29 (21-32) mmol/L Anion Gap 11.9 (5.0-14.0) mmol/L BUN 23 H (7-18) mg/dL Creatinine 1.4 H (0.8-1.3) mg/dL Est Cr Clr Drug Dosing 47.69 mL/min Estimated GFR (MDRD) 50 L (>60) Glucose 270 H (74-106) mg/dL Calcium 9.2 (8.5-10.1) mg/dL Total Bilirubin 1.1 H D (0.2-1.0) mg/dL AST 27 (15-37) U/L ALT 36 (12-78) U/L Alkaline Phosphatase 94 (46-116) U/L CK-MB (CK-2) 3.1 (0-3.6) mg/mL Troponin I < 0.017 (0.000-0.056) ng/mL Total Protein 7.5 (6.4-8.2) g/dL Albumin 3.9 (3.4-5.0) g/dL Globulin 3.6 H (2.3-3.5) g/dL Albumin/Globulin Ratio 1.1 L (1.2-2.2) 07/22/18 Range/Units 12:29 WBC (4.5-11.0) K/uL RBC (4.30-5.90) M/uL Hgb (12.0-15.0) g/dL Hct (40.0-54.0) % MCV (80-98) fL MCH (27-31) pg MCHC (32-36) % Plt Count (150-400) K/uL Neut % (Auto) (36-66) % Lymph % (Auto) (24-44) % [place] % (Auto) (2-6) % Eos % (Auto) (2-4) % Baso % (Auto) (0-1) % PT (9.5-12.0) sec INR (0.80-1.20) Sodium (140-148) mmol/L Potassium (3.6-5.2) mmol/L Chloride (100-108) mmol/L Carbon Dioxide (21-32) mmol/L Anion Gap (5.0-14.0) mmol/L BUN (7-18) mg/dL Creatinine (0.8-1.3) mg/dL Est Cr Clr Drug Dosing mL/min Estimated GFR (MDRD) (>60) Glucose (74-106) mg/dL Calcium (8.5-10.1) mg/dL Total Bilirubin (0.2-1.0) mg/dL AST (15-37) U/L ALT (12-78) U/L Alkaline Phosphatase (46-116) U/L CK-MB (CK-2) (0-3.6) mg/mL Troponin I < 0.017 (0.000-0.056) ng/mL Total Protein (6.4-8.2) g/dL Albumin (3.4-5.0) g/dL Globulin (2.3-3.5) g/dL Albumin/Globulin Ratio (1.2-2.2) Meds: Medications Generic Name Dose Route Start Last Admin Trade Name Freq PRN Reason Stop Dose Admin Sodium Chloride 1,000 mls @ 125 mls/hr 07/22/18 09:15 07/22/18 09:18 Normal Saline IV 125 mls/hr ASDIRECTED DEVON Administration Nitroglycerin 0.4 mg 07/22/18 09:04 07/22/18 10:39 Nitrostat SL 07/23/18 09:05 0.4 mg Q5M PRN Administration Chest Pain Sodium Chloride 10 ml 07/22/18 09:04 Saline Flush FLUSH ASDIRECTED PRN Keep Vein Open Discontinued Medications Generic Name Dose Route Start Last Admin Trade Name Freq PRN Reason Stop Dose Admin Adenosine Confirm 07/22/18 09:13 Adenocard Administered 07/22/18 09:14 Dose 18 mg .ROUTE .STK-MED ONE Adenosine 6 mg 07/22/18 09:51 07/22/18 09:52 Adenocard IVPUSH 07/22/18 09:52 6 mg NOW ONE Administration Adenosine 12 mg 07/22/18 09:51 07/22/18 09:55 Adenocard IVPUSH 07/22/18 09:52 12 mg NOW ONE Administration Aspirin 324 mg 07/22/18 09:04 07/22/18 09:12 Aspirin PO 07/22/18 09:05 324 mg ONETIME ONE Administration Hydromorphone HCl Confirm 07/22/18 09:17 Dilaudid Administered 07/22/18 09:18 Dose 1 mg .ROUTE .STK-MED ONE Hydromorphone HCl 1 mg 07/22/18 09:28 07/22/18 09:35 Dilaudid IVPUSH 07/22/18 09:29 1 mg ONETIME ONE Administration Hydromorphone HCl 1 mg 07/22/18 10:21 07/22/18 10:31 Dilaudid IVPUSH 07/22/18 10:22 1 mg ONETIME ONE Administration Hydromorphone HCl 1 mg 07/22/18 11:02 07/22/18 11:18 Dilaudid IVPUSH 07/22/18 11:03 1 mg ONETIME ONE Administration Ibutilide Fumarate Confirm 07/22/18 09:17 Corvert Administered 07/22/18 09:18 Dose 1 mg .ROUTE .STK-MED ONE Ibutilide Fumarate 1 mg 07/22/18 09:51 07/22/18 09:57 Corvert IVPUSH 07/22/18 09:52 1 mg ONETIME ONE Administration Ketamine HCl 20 mg 07/22/18 11:02 07/22/18 11:18 Ketalar IV 07/22/18 11:03 20 mg ONETIME ONE Administration Lorazepam Confirm 07/22/18 11:30 Ativan Administered 07/22/18 11:31 Dose 2 mg .ROUTE .STK-MED ONE Ondansetron HCl 4 mg 07/22/18 10:34 07/22/18 10:38 Zofran IVPUSH 07/22/18 10:35 4 mg ONETIME ONE Administration Prochlorperazine Edisylate 5 mg 07/22/18 11:49 07/22/18 14:27 Compazine IVPUSH 07/22/18 11:50 5 mg ONETIME ONE Administration Prochlorperazine Edisylate Confirm 07/22/18 14:24 Compazine Administered 07/22/18 14:25 Dose 10 mg .ROUTE .[employer] - Re-Assessments/Exams Free Text/Narrative Re-Assessment/Exam: 07/22/18 09:55 Initial EKG showed a wide complex tachycardia however it shows pacer spikes, he was progressively having any increase in pain was given adenosine 6 mg and 12 mg with no effect on the rate remained at 120 was given 1 mg Dilaudid for pain followed by 1 mg Corvert which then slowed his rate down into the 90s relieved his chest pressure and pain, 07/22/18 10:09 Called and discussed case with pacemaker clinic as well as pacemaker rep pacemaker rep has been contacted and will be in route for interrogation of the pacemaker for further evaluation 07/22/18 17:38 After pacemaker interrogation etiology was unknown, called and discussed case with blueprint machine operator Dr. Nunes at [facility] who felt this was pacemaker mediated tachycardia he then discussed the case with pacemaker representatives who agreed to reprogram the pacemaker Departure - Departure Time of Disposition: 17:58 Disposition: Home, Self-Care 01 Condition: Fair Clinical Impression: Wide-complex tachycardia Referrals: PCP,None [Primary Care Provider] - Forms: ED Department Discharge Additional Instructions: f/u with cardiology - My Orders Last 24 Hours: My Active Orders 07/22/18 09:04 Cardiac Monitoring [RC] .As Directed Nitroglycerin [Nitrostat] 0.4 mg SL Q5M PRN Sodium Chloride 0.9% [Saline Flush] 10 ml FLUSH ASDIRECTED PRN Peripheral IV Insertion Adult [OM.PC] Stat 07/22/18 09:05 EKG Documentation Completion [RC] ASDIRECTED Peripheral IV Care [RC] . DIRECTED EKG 12 Lead [EK] Stat 07/22/18 09:15 Sodium Chloride 0.9% [Normal Saline] 1,000 ml IV ASDIRECTED 07/22/18 09:42 EKG Documentation Completion [RC] ASDIRECTED EKG 12 Lead [EK] Stat - Assessment/Plan Last 24 Hours: My Active Orders 07/22/18 09:04 Cardiac Monitoring [RC] .As Directed Nitroglycerin [Nitrostat] 0.4 mg SL Q5M PRN Sodium Chloride 0.9% [Saline Flush] 10 ml FLUSH ASDIRECTED PRN Peripheral IV Insertion Adult [OM.PC] Stat 07/22/18 09:05 EKG Documentation Completion [RC] ASDIRECTED Peripheral IV Care [RC] . 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 Manifestations = chest pain and dyspnea now resolved Location of injury = Home Lab values = CBC unremarkable creatinine elevated 1.4 consistent chronic renal failure stage GIII a INR therapeutic at 3.36 glucose elevated at 270 consistent hyperglycemia, troponin negative 2, initial EKG showed a paced wide complex tachycardia at 120 after initial treatment EKG paced at 80 and 98, chest x-ray shows no acute process Plan After reprogramming of the pacemaker he is to have a follow-up with his mill helper within the next month for reevaluation, discharge home with Zofran 4 mg ODT 1 tablet PO every 8 hours as needed total #10 This note was dictated using [employer] voice recognition software please call with any questions on syntax or grammar.
--- NOTE | 2018-07-22 10:03 | CR ---
CHEST: Portable CLINICAL HISTORY:Chest pain COMPARISON:2017 FINDINGS: Patient has had previous sternotomy. There is a permanent cardiac pacer with sequential le ads in the right atrium and right ventricle. Pulmonary vascularity is mildly cephalized. This may be positional. Impression: Previous sternotomy Permanent cardiac pacer Mild vascular cephalization may be positional
[2018-07-22] MEDS ORDERED: Ondansetron 4 MG/2 ML SDV IVPUSH ONE (10:34)
[2018-07-22] MEDS ORDERED: Ketamine 500 MG/5 ML MDV IV ONE (11:02)
[2018-07-22] MEDS ORDERED: LORazepam 2 MG/ML SDV ONE (11:30)
[2018-07-22] MEDS ORDERED: LORazepam 2 MG/ML SDV IVPUSH ONE (11:30)
[2018-07-22] MEDS ORDERED: Prochlorperazine 10 MG/2 ML SDV IVPUSH ONE (11:49)
[2018-07-22] MEDS ORDERED: Prochlorperazine 10 MG/2 ML SDV ONE (14:24)
[2018-07-22 16:49] VITALS: BP 145/72
== END 2018-07-22 18:23 | disposition home or self-care (01) ==
LOC: JP.ED 09:00
DX: R00.0 Tachycardia, unspecified (principal); I25.810 Atherosclerosis of coronary artery bypass graft(s) without angina pectoris; I48.91 Unspecified atrial fibrillation; E78.00 Pure hypercholesterolemia, unspecified; I10 Essential (primary) hypertension; I25.2 Old myocardial infarction; E11.9 Type 2 diabetes mellitus without complications; Z88.8 Allergy status to other drugs, medicaments and biological substances; Z88.2 Allergy status to sulfonamides; Z95.0 Presence of cardiac pacemaker; Z88.1 Allergy status to other antibiotic agents; Z79.899 Other long term (current) drug therapy; Z79.01 Long term (current) use of anticoagulants; Z87.891 Personal history of nicotine dependence; Z95.1 Presence of aortocoronary bypass graft; Z79.84 Long term (current) use of oral hypoglycemic drugs
CPT/HCPCS: 36415; 71045; 80053; 82553; 84484; 85025; 85610; 93005; 96361; 96374; 96375; 96376; 99285; A9270; J0153; J0780; J1170; J1742; J2405; J7030; 99284

== ENCOUNTER 2018-11-24 12:13 | Emergency (ER) | payer MEDICARE, BC ==
[2018-11-24] MEDS ORDERED: Morphine 10 MG/ML Syringe IVPUSH ONE (12:29)
[2018-11-24] MEDS ORDERED: LORazepam 2 MG/ML SDV IVPUSH ONE (12:29)
--- NOTE | 2018-11-24 13:08 | EDM.PDOC ---
ED HPI GENERAL MEDICAL PROBLEM - General Chief Complaint: Chest Pain Stated Complaint: CHEST PAINS, LEG WENT NUMB Time Seen by Provider: 11/24/18 12:40 Source of Information: Reports: Patient, Family History Limitations: Reports: No Limitations - History of Present Illness INITIAL COMMENTS - FREE TEXT/NARRATIVE: 72-year-old male with a known extensive history of coronary artery disease, also previous history of stroke and a brain "lesion" was just discharged from the hospital after cardiology evaluation in 2 additional stents in distal coronary arteries. He is on anticoagulation with warfarin and Plavix along with aspirin, is on high-dose long-acting nitroglycerin in antihypertensives for angina. He was at the [facility], developed some right-sided chest discomfort, right arm tingling, and right leg numbness and decided to go home. In route to home he took 4 nitroglycerin with only mild improvement. Once home his decided to bring him in because he was getting so anxious, on arrival he was complaining of intense right-sided chest pain, tremors, and anxiety. Some pleuritic pain with breathing. No nausea or vomiting. This patient is well- known to the emergency room, and presents with intense pain syndromes on a fairly recurring basis. They seem to be worsened by his high anxiety. Onset: Gradual Duration: Hour(s): (2 hours) Associated Symptoms: Reports: Weakness (Right arm, right leg). Denies: Nausea/ Vomiting Right Chest Pain Score (Numeric/FACES): 7 - Related Data Allergies Allergy/AdvReac Type Severity Reaction Status Date / Time ketamine Allergy Severe Other Verified 11/24/18 12:30 dipyridamole Allergy Unknown Rash Verified 11/24/18 12:30 droperidol Allergy Unknown Cannot Verified 11/24/18 12:30 Remember hydrochlorothiazide Allergy Unknown Rash Verified 11/24/18 12:30 hydroxyzine pamoate Allergy Unknown Cannot Verified 11/24/18 12:30 [From Vistaril] Remember Sulfa (Sulfonamide Allergy Unknown Rash Verified 11/24/18 12:30 Antibiotics) vancomycin Allergy Unknown Cannot Verified 11/24/18 12:30 Remember Iodinated Contrast- Oral and Allergy Hives Verified 11/24/18 12:30 IV Dye [Iodinated Contrast Media - IV Dye] cisapride [Cisapride] AdvReac Unknown Slurred Verified 11/24/18 12:30 Speech cisapride monohydrate AdvReac Unknown Slurred Verified 11/24/18 12:30 [From Propulsid] Speech nifedipine [From Procardia] AdvReac Unknown Tachycardia Verified 11/24/18 12:30 Hnpvxln-[id number]-Bxg Reductase AdvReac Unknown Muscle Verified 11/24/18 12:30 Inhibitor Aches cyclobenzaprine HCl AdvReac Blurred Verified 11/24/18 12:30 [From Flexeril] Vision gabapentin [From Neurontin] AdvReac Hallucinati Verified 11/24/18 12:30 ons Home Meds: Home Meds Lansoprazole [Prevacid] 30 mg PO BID 03/03/14 [History] LORazepam [Ativan] 0.5 - 1 tab PO Q6H PRN 05/08/14 [History] Clopidogrel [Plavix] 1 tab PO DAILY 09/05/15 [History] Nitroglycerin [Nitrostat] 0.4 mg SL ASDIRECTED PRN #0 tab.sl 11/19/15 [Rx] Rosuvastatin [Crestor] 20 mg PO BEDTIME tablet 11/19/15 [Rx] Acetaminophen [Non-Aspirin Pain Relief] 650 mg PO Q6H PRN 12/25/15 [History] Ascorbate Calcium [Vitamin C] 500 mg PO DAILY 12/25/15 [History] Cholecalciferol (Vitamin D3) [Vitamin D3] 2,000 units PO DAILY 12/25/15 [History ] Cyanocobalamin (Vitamin B-12) [B-12] 1,000 mcg PO DAILY 12/25/15 [History] Furosemide 20 mg PO DAILY PRN 12/25/15 [History] HYDROmorphone HCl [Dilaudid] 2 mg PO Q6H PRN 12/25/15 [History] Lisinopril 5 mg PO BID 12/25/15 [History] Multivitamin [Multivitamins] 1 cap PO DAILY 12/25/15 [History] Temazepam 15 mg PO BEDTIME 12/25/15 [History] Warfarin [Coumadin] 3 mg PO DAILY 12/25/15 [History] Warfarin [Coumadin] 3.5 mg PO ASDIRECTED 12/25/15 [History] lamoTRIgine [Lamictal] 100 mg PO DAILY 12/25/15 [History] glipiZIDE [Glucotrol XL] 10 mg PO BID 02/03/16 [History] Isosorbide Mononitrate [Isosorbide Mononitrate ER] 60 mg PO DAILY 06/08/17 [ History] amLODIPine [Norvasc] 2.5 mg PO DAILY 06/08/17 [History] Metoprolol Succinate [Toprol XL] 100 mg PO DAILY 07/22/18 [History] Past Medical History HEENT History: Reports: Impaired Vision, Other (See Below) Other HEENT History: ringing in right ear. tunnel vision post cva Cardiovascular History: Reports: Afib, Angina, Bypass, CAD, Heart Valve Replacement, High Cholesterol, Hypertension, NM, Pacemaker, Stents Other Cardiovascular History: 08/22/15 2 stents and 3 more stents .aortic valve in 1974 and 1991. last stents in August, total now. angio 01/30/16, 11-10-18 2 stents placed. Respiratory History: Reports: Sleep Apnea Other Respiratory History: Cpap Gastrointestinal History: Reports: Other (See Below) Other Gastrointestinal History: drainage of Lymphocele in in february 2015 and june 2015 in abd Genitourinary History: Reports: Prostate Disorder Musculoskeletal History: Reports: Fracture, Other (See Below) Other Musculoskeletal History: fx collarbone, fx femur Neurological History: Reports: CVA, Seizure Other Neuro History: cva 2013 Psychiatric History: Reports: Anxiety, Depression Endocrine/Metabolic History: Reports: Diabetes, Type II Hematologic History: Reports: Blood Transfusion(s) - Infectious Disease History Infectious Disease History: Reports: Chicken Pox, Measles, Mumps Other Infectious Disease History: unknown - Past Surgical History Cardiovascular Surgical History: Reports: Coronary Artery Bypass, Coronary Artery Stent, Pacer, Percutaneous Transluminal Angioplasty, Valve Replacement, Vascular Surgery Other Cardiovascular Surgeries/Procedures: cabg x 4, pacer 09/05/2017--- reprogrammed 07/2018 Musculoskeletal Surgical History: Reports: Hip Replacement Social & Family History - Tobacco Use Smoking Status *Q: Never Smoker - Caffeine Use Caffeine Use: Reports: Coffee - Recreational Drug Use Recreational Drug Use: No ED ROS GENERAL - Review of Systems Review Of Systems: See Below Constitutional: Denies: Fever, Chills HEENT: Reports: No Symptoms Respiratory: Reports: Pleuritic Chest Pain. Denies: Shortness of Breath Cardiovascular: Reports: Chest Pain. Denies: Palpitations GI/Abdominal: Denies: Abdominal Pain, Nausea, Vomiting Skin: Denies: Pallor, Diaphoresis Neurological: Reports: Paresthesia (Paresthesias in the right arm and right leg , right leg weakness) Psychiatric: Reports: Anxiety ED EXAM, GENERAL - Physical Exam Exam: See Below Exam Limited By: No Limitations General Appearance: Alert, Anxious, Moderate Distress Eye Exam: Bilateral Eye: EOMI Neck: Supple Respiratory/Chest: No Respiratory Distress, Lungs Clear Cardiovascular: Regular Rate, Rhythm, Extra Beats GI/Abdominal: Non-Tender Neurological: Alert, Oriented, No Motor/Sensory Deficits Psychiatric: Anxious Skin Exam: Warm, Dry EKG INTERPRETATION Rhythm: NSR EKG Interpretation Comments: EKG shows chronic right and left bundle-branch blocks with PVCs in a trigeminy pattern. Course - Vital Signs Last Recorded V/S: Last Vital Signs Temp 97.3 F 11/24/18 12:26 Pulse 88 11/24/18 13:15 Resp 40 H 11/24/18 12:26 BP 137/82 11/24/18 13:15 Pulse Ox 91 L 11/24/18 13:15 - Orders/Labs/Meds Orders: Active Orders 24 hr Category Date Time Status EKG Documentation Completion [RC] ASDIRECTED Care 11/24/18 12:30 Active EKG 12 Lead [EK] Routine Ther 11/24/18 12:30 Ordered Labs: Laboratory Tests 11/24/18 Range/Units 12:32 Troponin I < 0.017 (0.000-0.056) ng/mL Meds: Medications Discontinued Medications Generic Name Dose Route Start Last Admin Trade Name Júnior PRN Reason Stop Dose Admin Lorazepam 1 mg 11/24/18 12:29 11/24/18 12:37 Ativan IVPUSH 11/24/18 12:30 1 mg ONETIME ONE Administration Morphine Sulfate 5 mg 11/24/18 12:29 11/24/18 12:35 Morphine IVPUSH 11/24/18 12:30 5 mg ONETIME ONE Administration - Re-Assessments/Exams Free Text/Narrative Re-Assessment/Exam: 11/24/18 13:07 Patient was given 5 mg of IV morphine and 1 mg of IV Ativan. Within 20 minutes his pain was almost resolved and he was much more relaxed. Troponin was 0. The family is in agreement to take him home, treat his anxiety and pain and return if there are any difficulties. I don't think another cardiology referral is necessary at this time. Departure - Departure Time of Disposition: 13:50 Disposition: Home, Self-Care 01 Condition: Fair Clinical Impression: Atypical chest pain - Discharge Information Instructions: Nonspecific Chest Pain Referrals: Chano Esparza MD [Primary Care Provider] - Forms: ED Department Discharge Care Plan Goals: Continue your current medications, rest today, and return if symptoms recur and become persistent and not responding to home medications. - My Orders Last 24 Hours: My Active Orders 11/24/18 12:30 EKG Documentation Completion [RC] ASDIRECTED EKG 12 Lead [EK] Routine - Assessment/Plan Last 24 Hours: My Active Orders 11/24/18 12:30 EKG Documentation Completion [RC] ASDIRECTED EKG 12 Lead [EK] Routine
[2018-11-24 13:49] VITALS: BP 137/82
== END 2018-11-24 13:49 | disposition home or self-care (01) ==
LOC: JP.ED 12:13
DX: R07.89 Other chest pain (principal); I10 Essential (primary) hypertension; E11.9 Type 2 diabetes mellitus without complications; Z91.041 Radiographic dye allergy status; Z88.8 Allergy status to other drugs, medicaments and biological substances; Z79.899 Other long term (current) drug therapy; Z79.01 Long term (current) use of anticoagulants
CPT/HCPCS: 36415; 84484; 93005; 96374; 96375; 99285; J2060; J2270

== ENCOUNTER 2019-11-08 09:47 | Emergency (ER) | payer MEDICARE, BC ==
[2019-11-08] MEDS ORDERED: Aspirin 81 MG Tab.Chew PO ONE (09:50)
[2019-11-08] MEDS: Nitroglycerin 0.4 MG Tab.SL SL PRN ×2 (10:03→10:16)
[2019-11-08] MEDS ORDERED: Morphine 4 MG/ML Syringe IVPUSH PRN (10:18)
--- NOTE | 2019-11-08 10:24 | EDM.PDOC ---
ED HPI GENERAL MEDICAL PROBLEM - General Chief Complaint: Chest Pain Stated Complaint: CHEST PAIN Time Seen by Provider: 11/08/19 09:50 Source of Information: Reports: Patient, Family, RN Notes Reviewed History Limitations: Reports: No Limitations - History of Present Illness INITIAL COMMENTS - FREE TEXT/NARRATIVE: 73-year-old gentleman presents emergency department a complaint of chest pressure, he has a known history of coronary artery disease states the pain started maybe last night 1 AM in the morning had difficulty getting back to sleep he also feels short of breath had reported to cardiac rehab this morning described his chest discomfort as 4-5 out of 10 no diaphoresis no nausea or vomiting. Has had a weight gain of 2 pounds, CABG 2016 stenting 2019 chest Pain Score (Numeric/FACES): 4 - Related Data Allergies Allergy/AdvReac Type Severity Reaction Status Date / Time ketamine Allergy Severe Other Verified 11/08/19 09:56 dipyridamole Allergy Unknown Rash Verified 11/08/19 09:56 droperidol Allergy Unknown Cannot Verified 11/08/19 09:56 Remember hydrochlorothiazide Allergy Unknown Rash Verified 11/08/19 09:56 hydroxyzine pamoate Allergy Unknown Cannot Verified 11/08/19 09:56 [From Vistaril] Remember Sulfa (Sulfonamide Allergy Unknown Rash Verified 11/08/19 09:56 Antibiotics) vancomycin Allergy Unknown Cannot Verified 11/08/19 09:56 Remember Iodinated Contrast Media Allergy Hives Verified 11/08/19 09:56 [Iodinated Contrast Media - IV Dye] cisapride [Cisapride] AdvReac Unknown Slurred Verified 11/08/19 09:56 Speech cisapride monohydrate AdvReac Unknown Slurred Verified 11/08/19 09:56 [From Propulsid] Speech nifedipine [From Procardia] AdvReac Unknown Tachycardia Verified 11/08/19 09:56 Mgmxonp-Okk-Rcn Reductase AdvReac Unknown Muscle Verified 11/08/19 09:56 Inhibitor Aches cyclobenzaprine HCl AdvReac Blurred Verified 11/08/19 09:56 [From Flexeril] Vision gabapentin [From Neurontin] AdvReac Hallucinati Verified 11/08/19 09:56 ons Home Meds: Home Meds Lansoprazole [Prevacid] 30 mg PO BID 03/03/14 [History] LORazepam [Ativan] 0.5 - 1 tab PO Q6H PRN 05/08/14 [History] Clopidogrel [Plavix] 1 tab PO DAILY 09/05/15 [History] Nitroglycerin [Nitrostat] 0.4 mg SL ASDIRECTED PRN #0 tab.sl 11/19/15 [Rx] Rosuvastatin [Crestor] 20 mg PO BEDTIME tablet 11/19/15 [Rx] Acetaminophen [Non-Aspirin Pain Relief] 650 mg PO Q6H PRN 12/25/15 [History] Cholecalciferol (Vitamin D3) [Vitamin D3] 2,000 units PO DAILY 12/25/15 [History ] Cyanocobalamin (Vitamin B-12) [B-12] 1,000 mcg PO DAILY 12/25/15 [History] Furosemide 20 mg PO DAILY PRN 12/25/15 [History] Lisinopril 20 mg PO DAILY 12/25/15 [History] Multivitamin [Multivitamins] 1 cap PO DAILY 12/25/15 [History] Temazepam 15 mg PO BEDTIME 12/25/15 [History] Warfarin [Coumadin] 2.5 mg PO DAILY 12/25/15 [History] Warfarin [Coumadin] 3 mg PO ASDIRECTED 12/25/15 [History] lamoTRIgine [Lamictal] 100 mg PO DAILY 12/25/15 [History] glipiZIDE [Glucotrol XL] 20 mg PO BID 02/03/16 [History] amLODIPine [Norvasc] 10 mg PO DAILY 06/08/17 [History] Metoprolol Succinate [Toprol XL] 100 mg PO DAILY 07/22/18 [History] Insulin Degludec [Tresiba] 14 units SQ BEDTIME 11/08/19 [History] Past Medical History HEENT History: Reports: Impaired Vision, Other (See Below) Other HEENT History: ringing in right ear. tunnel vision post cva Cardiovascular History: Reports: Afib, Angina, Bypass, CAD, Heart Valve Replacement, High Cholesterol, Hypertension, [place], Pacemaker, Stents Other Cardiovascular History: 08/22/15 2 stents and 3 more stents .aortic valve in 1974 and 1991. last stents in 2014, 7 total now. angio 01/30/16, 1-8-19 2 stents placed. Pacemaker/defib Respiratory History: Reports: Sleep Apnea Other Respiratory History: Cpap Gastrointestinal History: Reports: Other (See Below) Other Gastrointestinal History: drainage of Lymphocele in in february 2015 and june 2015 in abd Genitourinary History: Reports: Prostate Disorder Musculoskeletal History: Reports: Fracture, Other (See Below) Other Musculoskeletal History: fx collarbone, fx femur Neurological History: Reports: CVA, Seizure Other Neuro History: cva 2013 Psychiatric History: Reports: Anxiety, Depression Endocrine/Metabolic History: Reports: Diabetes, Type II Hematologic History: Reports: Blood Transfusion(s) - Infectious Disease History Infectious Disease History: Reports: Chicken Pox, Measles, Mumps Other Infectious Disease History: unknown - Past Surgical History Cardiovascular Surgical History: Reports: Coronary Artery Bypass, Coronary Artery Stent, Pacer, Percutaneous Transluminal Angioplasty, Vascular Surgery Other Cardiovascular Surgeries/Procedures: cabg x 4, pacer 09/05/2017--- reprogrammed 07/2018 Musculoskeletal Surgical History: Reports: Hip Replacement Other Musculoskeletal Surgeries/Procedures:: back injections Social & Family History - Tobacco Use Smoking Status *Q: Never Smoker - Caffeine Use Caffeine Use: Reports: Coffee ED ROS GENERAL - Review of Systems Review Of Systems: See Below Constitutional: Reports: No Symptoms HEENT: Reports: No Symptoms Respiratory: Reports: Shortness of Breath Cardiovascular: Reports: Chest Pain, Dyspnea on Exertion GI/Abdominal: Reports: No Symptoms ED EXAM, GENERAL - Physical Exam Exam: See Below Exam Limited By: No Limitations General Appearance: Alert, WD/WN, No Apparent Distress Throat/Mouth: No Airway Compromise Neck: Normal Inspection, Supple, Non-Tender, Full Range of Motion Respiratory/Chest: No Respiratory Distress, Lungs Clear, Normal Breath Sounds, No Accessory Muscle Use, Other (Tender to palpation underneath the left breast) Cardiovascular: Regular Rate, Rhythm, No Murmur GI/Abdominal: Soft, Non-Tender Extremities: No Pedal Edema Course - Vital Signs Last Recorded V/S: Last Vital Signs Temp 97.8 F 11/08/19 09:55 Pulse 82 11/08/19 10:50 Resp 15 11/08/19 10:50 BP 138/72 11/08/19 10:50 Pulse Ox 92 L 11/08/19 10:50 - Orders/Labs/Meds Orders: Active Orders 24 hr Category Date Time Status Cardiac Monitoring [RC] .As Directed Care 11/08/19 09:51 Active EKG Documentation Completion [RC] ASDIRECTED Care 11/08/19 09:51 Active Iopamidol [Isovue-370 (76%)] Med 11/08/19 11:15 Active 75 ml IV . DIRECTED Morphine Med 11/08/19 10:18 Active 4 mg IVPUSH Q10M PRN Nitroglycerin [Nitrostat] Med 11/08/19 09:50 Active 0.4 mg SL Q5M PRN Sodium Chloride 0.9% [Saline Flush] Med 11/08/19 11:09 Active 10 ml FLUSH ONETIME PRN EKG 12 Lead [EK] Stat Ther 11/08/19 09:51 Ordered Medication Orders Iopamidol (Isovue-370 (76%)) 75 ml IV . DIRECTED [facility] Last Admin: 11/08/19 11:35 Dose: 75 ml Morphine Sulfate (Morphine) 4 mg IVPUSH Q10M PRN PRN Reason: Chest Pain Stop: 11/09/19 10:19 Last Admin: 11/08/19 10:22 Dose: 4 mg Nitroglycerin (Nitrostat) 0.4 mg SL Q5M PRN PRN Reason: Chest Pain Stop: 11/09/19 09:51 Last Admin: 11/08/19 10:16 Dose: 0.4 mg Admin: 11/08/19 10:03 Dose: 0.4 mg Sodium Chloride (Saline Flush) 10 ml FLUSH ONETIME PRN PRN Reason: PER RADIOLOGY PROTOCOL Last Admin: 11/08/19 11:35 Dose: 10 ml Labs: Laboratory Tests 11/08/19 11/08/19 11/08/19 Range/Units 09:55 09:57 09:57 WBC 4.8 (4.5-11.0) K/uL RBC 4.97 (4.30-5.90) M/uL Hgb 15.2 H (12.0-15.0) g/dL Hct 46.4 (40.0-54.0) % MCV 93 (80-98) fL MCH 31 (27-31) pg MCHC 33 (32-36) % Plt Count 173 (150-400) K/uL Neut % (Auto) 62 (36-66) % Lymph % (Auto) 22 L (24-44) % [place] % (Auto) 14 H (2-6) % Eos % (Auto) 2 (2-4) % Baso % (Auto) 1 (0-1) % PT (9.5-12.0) sec INR (0.80-1.20) Sodium 137 L (140-148) mmol/L Potassium 4.1 (3.6-5.2) mmol/L Chloride 103 (100-108) mmol/L Carbon Dioxide 23 (21-32) mmol/L Anion Gap 15.1 H (5.0-14.0) mmol/L BUN 29 H D (7-18) mg/dL Creatinine 1.3 (0.8-1.3) mg/dL Est Cr Clr Drug Dosing 52.25 mL/min Estimated GFR (MDRD) 54 L (>60) Glucose 250 H (74-106) mg/dL Calcium 9.3 (8.5-10.1) mg/dL Total Bilirubin 0.6 (0.2-1.0) mg/dL AST 25 (15-37) U/L ALT 34 (12-78) U/L Alkaline Phosphatase 121 H (46-116) U/L Troponin I < 0.017 (0.000-0.056) ng/mL NT-Pro-B Natriuret Pep 485 H (5-125) pg/mL Total Protein 7.9 (6.4-8.2) g/dL Albumin 4.1 (3.4-5.0) g/dL Globulin 3.8 H (2.3-3.5) g/dL Albumin/Globulin Ratio 1.1 L (1.2-2.2) 11/08/19 Range/Units 09:57 WBC (4.5-11.0) K/uL RBC (4.30-5.90) M/uL Hgb (12.0-15.0) g/dL Hct (40.0-54.0) % MCV (80-98) fL MCH (27-31) pg MCHC (32-36) % Plt Count (150-400) K/uL Neut % (Auto) (36-66) % Lymph % (Auto) (24-44) % [place] % (Auto) (2-6) % Eos % (Auto) (2-4) % Baso % (Auto) (0-1) % PT 23.9 H (9.5-12.0) sec INR 2.32 H (0.80-1.20) Sodium (140-148) mmol/L Potassium (3.6-5.2) mmol/L Chloride (100-108) mmol/L Carbon Dioxide (21-32) mmol/L Anion Gap (5.0-14.0) mmol/L BUN (7-18) mg/dL Creatinine (0.8-1.3) mg/dL Est Cr Clr Drug Dosing mL/min Estimated GFR (MDRD) (>60) Glucose (74-106) mg/dL Calcium (8.5-10.1) mg/dL Total Bilirubin (0.2-1.0) mg/dL AST (15-37) U/L ALT (12-78) U/L Alkaline Phosphatase (46-116) U/L Troponin I (0.000-0.056) ng/mL NT-Pro-B Natriuret Pep (5-125) pg/mL Total Protein (6.4-8.2) g/dL Albumin (3.4-5.0) g/dL Globulin (2.3-3.5) g/dL Albumin/Globulin Ratio (1.2-2.2) Meds: Medications Generic Name Dose Route Start Last Admin Trade Name Freq PRN Reason Stop Dose Admin Iopamidol 75 ml 11/08/19 11:15 11/08/19 11:35 Isovue-370 (76%) IV 75 ml . DIRECTED DEVON Administration Morphine Sulfate 4 mg 11/08/19 10:18 11/08/19 10:22 Morphine IVPUSH 11/09/19 10:19 4 mg Q10M PRN Administration Chest Pain Nitroglycerin 0.4 mg 11/08/19 09:50 11/08/19 10:16 Nitrostat SL 11/09/19 09:51 0.4 mg Q5M PRN Administration Chest Pain Sodium Chloride 10 ml 11/08/19 11:09 11/08/19 11:35 Saline Flush FLUSH 10 ml ONETIME PRN Administration PER RADIOLOGY PROTOCOL Discontinued Medications Generic Name Dose Route Start Last Admin Trade Name Freq PRN Reason Stop Dose Admin Aspirin 324 mg 11/08/19 09:50 11/08/19 10:03 Aspirin PO 11/08/19 09:51 324 mg ONETIME ONE Administration Diphenhydramine HCl 50 mg 11/08/19 11:01 11/08/19 11:06 Benadryl IVPUSH 11/08/19 11:02 50 mg ONETIME ONE Administration Sodium Chloride 90 mls @ 3 mls/sec 11/08/19 11:09 11/08/19 11:36 Normal Saline IV 11/08/19 11:10 3 mls/sec ONETIME ONE Administration Lorazepam 1 mg 11/08/19 10:30 11/08/19 10:39 Ativan IVPUSH 11/08/19 10:31 1 mg ONETIME ONE Administration Ondansetron HCl 4 mg 11/08/19 10:29 11/08/19 10:43 Zofran IVPUSH 11/08/19 10:30 Not Given ONETIME ONE - Re-Assessments/Exams Free Text/Narrative Re-Assessment/Exam: 11/08/19 11:02 Has received little relief and morphine, continues to complain about back pain in the center of his chest rates the pain 5 out of 10 Departure - Departure Time of Disposition: 13:16 Disposition: Home, Self-Care 01 Condition: Fair Clinical Impression: Atypical chest pain Referrals: PCP,None [Ordering Only Provider] - Forms: ED Department Discharge Additional Instructions: Continue with your regular medications, use the Percocet as needed for pain, keep your follow-up appointment with cardiology Sepsis Event Note - Evaluation Sepsis Screening Result: No Definite Risk - Focused Exam Vital Signs: Vital Signs Temp Pulse Resp BP BP Pulse Ox 11/08/19 10:50 82 15 138/72 92 L 11/08/19 10:26 94 11 L 147/80 H 99 11/08/19 10:16 181/76 H 11/08/19 10:15 92 14 181/76 H 98 11/08/19 10:03 178/82 H 11/08/19 09:55 97.8 F 89 11 L 178/82 H 98 Date Exam was Performed: 11/08/19 Time Exam was Performed: 13:13 - My Orders Last 24 Hours: My Active Orders 11/08/19 09:50 Nitroglycerin [Nitrostat] 0.4 mg SL Q5M PRN 11/08/19 09:51 Cardiac Monitoring [RC] .As Directed EKG Documentation Completion [RC] ASDIRECTED EKG 12 Lead [EK] Stat 11/08/19 10:18 Morphine 4 mg IVPUSH Q10M PRN 11/08/19 11:09 Sodium Chloride 0.9% [Saline Flush] 10 ml FLUSH ONETIME PRN 11/08/19 11:15 Iopamidol [Isovue-370 (76%)] 75 ml IV . DIRECTED - Assessment/Plan Last 24 Hours: My Active Orders 11/08/19 09:50 Nitroglycerin [Nitrostat] 0.4 mg SL Q5M PRN 11/08/19 09:51 Cardiac Monitoring [RC] .As Directed EKG Documentation Completion [RC] ASDIRECTED EKG 12 Lead [EK] Stat 11/08/19 10:18 Morphine 4 mg IVPUSH Q10M PRN 11/08/19 11:09 Sodium Chloride 0.9% [Saline Flush] 10 ml FLUSH ONETIME PRN 11/08/19 11:15 Iopamidol [Isovue-370 (76%)] 75 ml IV . DIRECTED Plan: Assessment Acuity = acute Site and laterality = atypical chest pain complicated patient with known history of coronary artery disease Etiology = unknown Manifestations = none Location of injury = Home Lab values = CBC unremarkable INR therapeutic 2.3 CMP reveals glucose elevated 250 consistent hyperglycemia troponin was negative BNP slightly elevated 485, EKG demonstrates paced rhythm, chest x-ray shows no acute process CT scan of the chest reveals no pulmonary embolism or dissection Plan He did become pain-free while in the emergency department after initial doses of morphine and nitroglycerin, I talked about hospital admission they declined at this time would prefer to go home and do watchful waiting, do have a follow- up appointment with his multimedia manager in a couple of weeks, prescription written for Percocet 5/325 1 tab p.o. 3 times daily PRN total #6 This note was dictated using [employer] voice recognition software please call with any questions on syntax or grammar.
[2019-11-08] MEDS ORDERED: Ondansetron 4 MG/2 ML SDV IVPUSH ONE (10:29)
[2019-11-08] MEDS ORDERED: LORazepam 2 MG/ML SDV IVPUSH ONE (10:30)
[2019-11-08 10:51] VITALS: BP 138/72; PULSE 82
[2019-11-08] MEDS ORDERED: diphenhydrAMINE 50 MG/ML SDV IVPUSH ONE (11:01)
[2019-11-08] MEDS ORDERED: Sodium Chloride 0.9% 90 ML IV ONE (11:09)
[2019-11-08] MEDS ORDERED: Sodium Chloride 0.9% 10 ML Syringe FLUSH PRN (11:09)
[2019-11-08] MEDS ORDERED: Iopamidol 755 Mg/ML 100 ML Bottle IV SCH (11:15)
--- NOTE | 2019-11-08 12:01 | CR ---
CHEST: Portable 11/08/2019 at 1011 CLINICAL HISTORY:Chest pain COMPARISON:08/22/2018 FINDINGS: Heart size is normal. Patient has had previous sternotomy. There is a permanent cardiac pacer/defibrillator. There are atherosclerotic changes in the aorta. Bony vascularity is normal. No infiltrates are seen. There is a persistent but stable nodule in the right perihilar region. Impression: No acute cardio pelvic process Right perihilar pulmonary nodule is similar to 08/22/2018
--- NOTE | 2019-11-08 12:14 | CT ---
Ang Chest CLINICAL HISTORY: Back pain and chest pain TECHNIQUE: Thin section axial contiguous tomographic sections were taken through the chest after bolus IV iodinated contrast administration. Coronal and sagittal images were reconstructed. Auto dosage reduction and iterative reconstruction techniques employed. FINDINGS: No pulmonary infiltrates are identified. There is some mild patchy dependent the atelectasis. Pulmonary arteries show no filling defects or vessel cut off. The aorta is only minimally opacified. There is no aneurysm or obvious dissection. The brachiocephalic vessels are calcified tortuous and ectatic. There are no pericardial or pleural effusions. The nodular density seen on previous and current portable chest x-rays does not correspond to a pulmonary nodule. This likely represents some super imposition of structures and the proximal primary vessels. Impression: No evidence of pulmonary embolus. Advanced atherosclerotic vascular changes in the aorta and proximal brachiocephalic vessels. There is no aneurysm or obvious dissection identified. Nodular density seen on current and previous chest x-rays likely corresponds to superimposed structures and proximal pulmonary vessels en face
== END 2019-11-08 13:36 | disposition home or self-care (01) ==
LOC: JP.ED 09:47
DX: R07.89 Other chest pain (principal); I48.91 Unspecified atrial fibrillation; I25.10 Atherosclerotic heart disease of native coronary artery without angina pectoris; I25.2 Old myocardial infarction; I10 Essential (primary) hypertension; E11.9 Type 2 diabetes mellitus without complications; Z95.5 Presence of coronary angioplasty implant and graft; Z79.899 Other long term (current) drug therapy; Z79.01 Long term (current) use of anticoagulants; Z79.4 Long term (current) use of insulin; Z86.73 Personal history of transient ischemic attack (TIA), and cerebral infarction without residual deficits; Z95.1 Presence of aortocoronary bypass graft; Z88.8 Allergy status to other drugs, medicaments and biological substances; Z91.041 Radiographic dye allergy status; Z88.1 Allergy status to other antibiotic agents; Z88.2 Allergy status to sulfonamides; Z88.6 Allergy status to analgesic agent
CPT/HCPCS: 36415; 71045; 71045-26; 71275; 71275-26; 80053; 83880; 84484; 85025; 85610; 93005; 93010; 96374; 96375; 99284; 99285-25; A9270-GY; J1200; J2060; J2270; J7050; Q9967

== ENCOUNTER 2022-08-01 08:19 | Observation (INO) | payer MEDICARE, BC ==
[2022-08-01] MEDS ORDERED: Sodium Chloride 0.9% 10 ML Syringe FLUSH PRN (08:47)
[2022-08-01] MEDS ORDERED: Sodium Chloride 0.9% 1,000 ML IV SCH (09:00)
[2022-08-01 10:19] LABS: ESTIMATED GFR 48 mL/min (>60); TROPONIN I HIGH SENSITIVITY 13.4 pg/mL (<=60.3)
[2022-08-01] MEDS ORDERED: ONDANSETRON 4 MG PO PRN (13:30)
[2022-08-01] MEDS ORDERED: Magnesium Hydroxide 400 MG/5 ML Susp 30 ML Cup PO PRN (13:30)
[2022-08-01] MEDS ORDERED: oxyCODONE 5 MG Tab PO PRN (13:30)
[2022-08-01] MEDS ORDERED: Ondansetron 4 MG/2 ML SDV IV PRN (13:30)
[2022-08-01] MEDS ORDERED: Acetaminophen 325 MG Tab PO PRN (13:30)
[2022-08-01] MEDS ORDERED: Acetaminophen 325 MG Tab, 50 Tab Bulk Bottle PO PRN (19:36)
[2022-08-01] MEDS ORDERED: Furosemide 20 MG Tab PO PRN (19:36)
[2022-08-01] MEDS ORDERED: Nitroglycerin 0.4 MG Tab.SL (PTOM) SL PRN (19:36)
[2022-08-01] MEDS ORDERED: LORazepam 1 MG Tab PO PRN (19:36)
[2022-08-01] MEDS: Cyanocobalamin (Vitamin B12) 1,000 MCG Tab PO SCH (22:06)
[2022-08-01] MEDS: Temazepam 15 MG Cap PO SCH (22:06)
[2022-08-01] MEDS: Allopurinol 100 MG Tab PO SCH (22:06)
[2022-08-01] MEDS: GLIPIZIDE 10 MG PO SCH (22:07)
[2022-08-01] MEDS: ROSUVASTATIN 20 MG PO SCH (22:08)
[2022-08-01] MEDS: INSULIN DEGLUDEC 100 UNIT/ML SQ SCH (22:18)
[2022-08-01] MEDS: Melatonin 3 MG Tab PO SCH (22:18)
[2022-08-01] MEDS: Insulin Lispro 100 Unit/ML 3 ML KwikPen SUBCUT PRN (22:19)
[2022-08-02] MEDS ORDERED: Acetaminophen 325 MG Tab PO PRN (07:07)
[2022-08-02] MEDS ORDERED: Pantoprazole 40 MG Tab.CR PO SCH (07:30)
[2022-08-02] MEDS ORDERED: Non-Formulary Medication 1 Each (Amlodipine [Norvasc] 2.5 MG Tablet) PO SCH (09:00)
[2022-08-02] MEDS ORDERED: Metoprolol Succinate 50 MG Tab.ER PO SCH (09:00)
[2022-08-02] MEDS ORDERED: Non-Formulary Medication 1 Each (Multivitamin [Multivitamins] 1 EACH Capsule) PO SCH (09:00)
[2022-08-02] MEDS ORDERED: Lisinopril 5 MG Tab PO SCH (09:00)
[2022-08-02] MEDS ORDERED: Non-Formulary Medication 1 Each (Cholecalciferol (Vitamin D3) [Vitamin D3] 2,000 UNIT Cap) PO SCH (09:00)
[2022-08-02] MEDS ORDERED: DULoxetine 20 MG Cap PO SCH (09:00)
[2022-08-02] MEDS: METOPROLOL 200 MG PO SCH (09:17)
[2022-08-02] MEDS: LAMOTRIGINE 100 MG PO SCH (09:18)
[2022-08-02] MEDS: LANSOPRAZOLE 30 MG PO SCH ×2 (09:18→16:57)
[2022-08-02] MEDS: Lisinopril 10 MG Tab (PTOM) PO SCH (09:19)
[2022-08-02] MEDS: Clopidogrel 75 MG Tab (PTOM) PO SCH (09:19)
[2022-08-02] MEDS: Multivitamins with Iron/Calcium/Folic Acid/Minerals Tab PO SCH (09:21)
[2022-08-02] MEDS: Cholecalciferol (Vitamin D3) 25 MCG Tab PO SCH (09:21)
[2022-08-02] MEDS: Allopurinol 100 MG Tab PO SCH ×2 (09:22→20:56)
[2022-08-02] MEDS: Cyanocobalamin (Vitamin B12) 1,000 MCG Tab PO SCH (09:23)
[2022-08-02] MEDS: GLIPIZIDE 10 MG PO SCH ×2 (09:24→20:52)
[2022-08-02] MEDS ORDERED: WARFARIN 1 MG PO ONE (10:30)
[2022-08-02] MEDS: DULOXETINE 20 MG PO SCH (10:58)
[2022-08-02] MEDS: Furosemide 40 MG Tab (PTOM) PO SCH (10:59)
[2022-08-02] MEDS: amLODIPine 5 MG Tab (PTOM) PO SCH (11:00)
[2022-08-02] MEDS ORDERED: Isosorbide Mononitrate 30 MG Tab.ER (PTOM) PO SCH (12:00)
[2022-08-02] MEDS: Insulin Lispro 100 Unit/ML 3 ML KwikPen SUBCUT PRN ×3 (13:26→21:58)
[2022-08-02] MEDS ORDERED: Furosemide 40 MG Tab PO ONE (17:40)
[2022-08-02] MEDS: ROSUVASTATIN 20 MG PO SCH (20:49)
[2022-08-02] MEDS: Melatonin 3 MG Tab PO SCH (20:51)
[2022-08-02] MEDS: Temazepam 15 MG Cap PO SCH (20:59)
[2022-08-02] MEDS: INSULIN DEGLUDEC 100 UNIT/ML SQ SCH (21:03)
[2022-08-03] MEDS: LANSOPRAZOLE 30 MG PO SCH ×2 (08:05→09:25)
[2022-08-03 08:17] VITALS: BP 141/51; PULSE 78
[2022-08-03] MEDS ORDERED: Warfarin 2.5 MG Tab PO SCH (09:00)
[2022-08-03] MEDS: DULOXETINE 20 MG PO SCH (09:26)
[2022-08-03] MEDS: LAMOTRIGINE 100 MG PO SCH (09:27)
[2022-08-03] MEDS: Furosemide 40 MG Tab (PTOM) PO SCH (09:28)
[2022-08-03] MEDS: amLODIPine 5 MG Tab (PTOM) PO SCH (09:29)
[2022-08-03] MEDS: Clopidogrel 75 MG Tab (PTOM) PO SCH (09:29)
[2022-08-03] MEDS: Lisinopril 10 MG Tab (PTOM) PO SCH (09:29)
[2022-08-03] MEDS: METOPROLOL 200 MG PO SCH (09:30)
[2022-08-03] MEDS: Multivitamins with Iron/Calcium/Folic Acid/Minerals Tab PO SCH (09:32)
[2022-08-03] MEDS: Allopurinol 100 MG Tab PO SCH (09:32)
[2022-08-03] MEDS: Cyanocobalamin (Vitamin B12) 1,000 MCG Tab PO SCH (09:32)
[2022-08-03] MEDS: Cholecalciferol (Vitamin D3) 25 MCG Tab PO SCH (09:32)
[2022-08-03] MEDS: GLIPIZIDE 10 MG PO SCH (09:34)
[2022-08-03] MEDS ORDERED: WARFARIN 1 MG PO SCH (13:00)
[2022-08-04] MEDS ORDERED: WARFARIN 1 MG PO SCH (13:00)
== END 2022-08-03 11:45 | disposition home or self-care (01) ==
LOC: JP.ED 08:19 → JP.MS 12:50
PROVIDERS: ADMIT Hospitalist; ATTEND Hospitalist
DX: R41.0 Disorientation, unspecified (principal); R53.1 Weakness; I25.10 Atherosclerotic heart disease of native coronary artery without angina pectoris; I10 Essential (primary) hypertension; I25.2 Old myocardial infarction; I48.91 Unspecified atrial fibrillation; E78.00 Pure hypercholesterolemia, unspecified; F32.A Depression, unspecified; F41.9 Anxiety disorder, unspecified; K21.9 Gastro-esophageal reflux disease without esophagitis; G47.30 Sleep apnea, unspecified; G89.29 Other chronic pain; R05.9 Cough, unspecified; E11.59 Type 2 diabetes mellitus with other circulatory complications; Z88.2 Allergy status to sulfonamides; Z88.1 Allergy status to other antibiotic agents; Z88.8 Allergy status to other drugs, medicaments and biological substances; Z86.73 Personal history of transient ischemic attack (TIA), and cerebral infarction without residual deficits; Z79.01 Long term (current) use of anticoagulants; Z79.899 Other long term (current) drug therapy; Z79.84 Long term (current) use of oral hypoglycemic drugs; Z79.891 Long term (current) use of opiate analgesic; Z79.4 Long term (current) use of insulin; Z91.041 Radiographic dye allergy status; Z98.890 Other specified postprocedural states; Z90.49 Acquired absence of other specified parts of digestive tract; Z95.4 Presence of other heart-valve replacement
CPT/HCPCS: 36415; 70450; 71046; 80048; 80053; 80307; 81001; 82140; 82947; 83605; 84145; 84443; 84484; 85025; 85027; 85610; 86140; 96361; 96374; 97116; 97162; 97165; 99284; 99285; A9270; G0378; J1815; J2405; J7030; Q0162; 96360; 99217; 99220; 99226

== ENCOUNTER 2022-09-10 05:57 | Emergency (ER) | payer MEDICARE, BC ==
[2022-09-10] MEDS ORDERED: Albuterol 90 MCG/6.7 GM Inhaler INH PRN (06:25)
[2022-09-10 07:05] LABS: CORONAVIRUS COVID-19 NAA POSITIVE (NEGATIVE)
[2022-09-10 07:05] LABS: ESTIMATED GFR 41 mL/min (>60)
[2022-09-10 07:20] VITALS: BP 141/62; PULSE 100
== END 2022-09-10 07:58 | disposition home or self-care (01) ==
LOC: JP.ED 05:57
DX: U07.1 COVID-19 (principal); I25.119 Atherosclerotic heart disease of native coronary artery with unspecified angina pectoris; I48.91 Unspecified atrial fibrillation; E78.00 Pure hypercholesterolemia, unspecified; I10 Essential (primary) hypertension; I25.2 Old myocardial infarction; E11.22 Type 2 diabetes mellitus with diabetic chronic kidney disease; E11.59 Type 2 diabetes mellitus with other circulatory complications; N17.9 Acute kidney failure, unspecified; N18.30 Chronic kidney disease, stage 3 unspecified; Z88.4 Allergy status to anesthetic agent; Z88.2 Allergy status to sulfonamides; Z88.1 Allergy status to other antibiotic agents; Z88.8 Allergy status to other drugs, medicaments and biological substances; Z91.041 Radiographic dye allergy status; Z79.02 Long term (current) use of antithrombotics/antiplatelets; Z79.01 Long term (current) use of anticoagulants; Z79.899 Other long term (current) drug therapy; Z79.4 Long term (current) use of insulin; Z95.5 Presence of coronary angioplasty implant and graft
CPT/HCPCS: 0241U; 36415; 71045; 80053; 84145; 85025; 85610; 94640; 99285; A9270

== ENCOUNTER 2022-09-17 13:59 | Emergency (ER) | payer MEDICARE, BC ==
[2022-09-17 15:00] LABS: TROPONIN I HIGH SENSITIVITY 22.7 pg/mL (<=60.3)
[2022-09-17 15:06] VITALS: PULSE 66
[2022-09-17] MEDS ORDERED: Albuterol/Ipratropium 3.0-0.5 MG/3 ML Neb Soln NEB ONE (16:13)
[2022-09-17 16:16] VITALS: BP 183/49
== END 2022-09-17 16:35 | disposition home or self-care (01) ==
LOC: JP.ED 13:59
DX: U07.1 COVID-19 (principal); N17.9 Acute kidney failure, unspecified; E11.59 Type 2 diabetes mellitus with other circulatory complications; I25.10 Atherosclerotic heart disease of native coronary artery without angina pectoris; E78.00 Pure hypercholesterolemia, unspecified; Z88.8 Allergy status to other drugs, medicaments and biological substances; Z88.2 Allergy status to sulfonamides; Z88.4 Allergy status to anesthetic agent; Z79.899 Other long term (current) drug therapy; Z79.01 Long term (current) use of anticoagulants; Z79.4 Long term (current) use of insulin; Z90.49 Acquired absence of other specified parts of digestive tract
CPT/HCPCS: 36415; 71045; 80048; 81001; 84484; 85025; 85610; 93005; 99285

== ENCOUNTER 2023-02-04 09:50 | Emergency (ER) | payer MEDICARE, BC ==
[2023-02-04] MEDS ORDERED: Sodium Chloride 0.9% 10 ML Syringe FLUSH PRN (09:54)
[2023-02-04] MEDS ORDERED: Aspirin 81 MG Tab.Chew PO ONE (09:54)
[2023-02-04] MEDS: Morphine 4 MG/ML Syringe IVPUSH PRN ×2 (10:03→10:18)
[2023-02-04] MEDS ORDERED: Nitroglycerin/D5W 25 MG/250 ML BOTTLE IV SCH (10:30)
[2023-02-04] MEDS ORDERED: HYDROmorphone 0.5 MG/0.5 ML Syringe IVPUSH ONE (11:05)
[2023-02-04 11:26] LABS: ESTIMATED GFR 44 mL/min (>60); TROPONIN I HIGH SENSITIVITY 28.5 pg/mL (<=60.3)
[2023-02-04 12:00] VITALS: PULSE 60
[2023-02-04 13:14] VITALS: BP 128/50
[2023-02-04] MEDS ORDERED: Ketorolac 30 MG/ML SDV IVPUSH ONE (13:58)
== END 2023-02-04 15:26 | disposition home or self-care (01) ==
LOC: JP.ED 09:50
DX: R07.89 Other chest pain (principal); I25.119 Atherosclerotic heart disease of native coronary artery with unspecified angina pectoris; I48.91 Unspecified atrial fibrillation; E78.00 Pure hypercholesterolemia, unspecified; I25.2 Old myocardial infarction; Z95.0 Presence of cardiac pacemaker; Z86.73 Personal history of transient ischemic attack (TIA), and cerebral infarction without residual deficits; Z88.2 Allergy status to sulfonamides; Z88.1 Allergy status to other antibiotic agents; Z91.041 Radiographic dye allergy status; Z88.8 Allergy status to other drugs, medicaments and biological substances; Z88.4 Allergy status to anesthetic agent
CPT/HCPCS: 36415; 71045; 80053; 84484; 85025; 85610; 93005; 96365; 96366; 96375; 99285; A9270; J1170; J1885; J2270; J3490

== ENCOUNTER 2023-02-05 14:53 | Emergency (ER) | payer MEDICARE, BC ==
[2023-02-05] MEDS ORDERED: Aspirin 81 MG Tab.Chew PO ONE (15:15)
[2023-02-05] MEDS ORDERED: Nitroglycerin/D5W 25 MG/250 ML BOTTLE IV SCH (15:15)
[2023-02-05] MEDS: Morphine 4 MG/ML Syringe IVPUSH PRN ×2 (15:26→15:48)
[2023-02-05] MEDS: Sodium Chloride 0.9% 10 ML Syringe FLUSH PRN ×3 (15:28→16:27)
[2023-02-05 15:53] LABS: ESTIMATED GFR 38 mL/min (>60); TROPONIN I HIGH SENSITIVITY 23.4 pg/mL (<=60.3)
[2023-02-05] MEDS ORDERED: LORazepam 2 MG/ML SDV IVPUSH ONE (16:17)
[2023-02-05 16:46] VITALS: PULSE 59
[2023-02-05 17:57] VITALS: BP 170/53
== END 2023-02-05 18:08 ==
LOC: JP.ED 14:53
DX: I20.0 Unstable angina (principal); I48.91 Unspecified atrial fibrillation; E78.00 Pure hypercholesterolemia, unspecified; I10 Essential (primary) hypertension; I25.2 Old myocardial infarction; E11.9 Type 2 diabetes mellitus without complications; Z86.73 Personal history of transient ischemic attack (TIA), and cerebral infarction without residual deficits; Z86.16 Personal history of COVID-19; Z95.0 Presence of cardiac pacemaker; Z88.4 Allergy status to anesthetic agent; Z88.5 Allergy status to narcotic agent; Z88.8 Allergy status to other drugs, medicaments and biological substances; Z88.1 Allergy status to other antibiotic agents; Z91.041 Radiographic dye allergy status; Z88.2 Allergy status to sulfonamides; Z79.899 Other long term (current) drug therapy; Z79.01 Long term (current) use of anticoagulants; Z79.4 Long term (current) use of insulin; Z79.02 Long term (current) use of antithrombotics/antiplatelets
CPT/HCPCS: 36415; 80053; 84484; 85025; 85610; 93005; 96374; 96375; 99285; J2060; J2270; J3490

== ENCOUNTER 2023-02-28 08:13 | Emergency (ER) | payer MEDICARE, BC ==
[2023-02-28] MEDS ORDERED: Sodium Chloride 0.9% 500 ML IV ONE (10:28)
[2023-02-28 11:54] VITALS: BP 163/81; PULSE 85
== END 2023-02-28 13:34 | disposition home or self-care (01) ==
LOC: JP.ED 08:13
DX: I25.5 Ischemic cardiomyopathy (principal); E86.0 Dehydration; I95.1 Orthostatic hypotension; E11.65 Type 2 diabetes mellitus with hyperglycemia; I12.9 Hypertensive chronic kidney disease with stage 1 through stage 4 chronic kidney disease, or unspecified chronic kidney disease; E11.22 Type 2 diabetes mellitus with diabetic chronic kidney disease; N18.30 Chronic kidney disease, stage 3 unspecified; Z86.16 Personal history of COVID-19; I48.91 Unspecified atrial fibrillation; I25.10 Atherosclerotic heart disease of native coronary artery without angina pectoris; I10 Essential (primary) hypertension; E78.00 Pure hypercholesterolemia, unspecified; I25.2 Old myocardial infarction; Z88.4 Allergy status to anesthetic agent; Z88.8 Allergy status to other drugs, medicaments and biological substances; Z88.2 Allergy status to sulfonamides; Z88.1 Allergy status to other antibiotic agents; Z91.041 Radiographic dye allergy status; Z79.899 Other long term (current) drug therapy; Z79.01 Long term (current) use of anticoagulants; Z79.4 Long term (current) use of insulin
CPT/HCPCS: 36415; 71045; 71045-26; 80048; 81001; 84145; 85025; 85610; 96360; 99283-25; 99284; J7040; U0002

== ENCOUNTER 2023-03-02 06:56 | Inpatient (IN) | payer MEDICARE, BC ==
[2023-03-02] MEDS ORDERED: Sodium Chloride 0.9% 10 ML Syringe FLUSH PRN (07:23)
[2023-03-02] MEDS ORDERED: fentaNYL 100 MCG/2 ML SDV IVPUSH ONE (07:25)
[2023-03-02 07:37] LABS: BASOPHILS ABSOLUTE AUTO 0.05 K/uL (0.00-0.10); BASOPHILS PERCENT AUTO 0.8 % (0.1-1.3); EOSINOPHILS PERCENT AUTO 1.6 % (0.0-5.4); HEMATOCRIT 38.7 % (38.4-49.7); HEMOGLOBIN 12.9 g/dL (12.9-16.9); IMMATURE GRAN ABSOLUTE AUTO 0.04 K/uL (0.00-0.23); IMMATURE GRAN PERCENT AUTO 0.7 % (0.0-0.7); LYMPHOCYTES ABSOLUTE AUTO 0.71 K/uL (0.8-3.3); LYMPHOCYTES PERCENT AUTO 11.6 % (11.4-47.7); MEAN CORPUSCULAR HEMOGLOBIN 31.7 pg (31.6-35.5); MEAN CORPUSCULAR HGB CONC 33.3 g/dL (31.6-35.5); MEAN CORPUSCULAR VOLUME 95.1 fL (81.4-99.0); MONOCYTES ABSOLUTE AUTO 0.84 K/uL (0.20-0.90); MONOCYTES PERCENT AUTO 13.7 % (3.3-12.6); NEUTROPHILS ABSOLUTE AUTO 4.37 K/uL (1.0-7.6); NEUTROPHILS PERCENT AUTO 71.6 % (40.0-78.1); PLATELET COUNT,PLT 208 K/uL (130-375); RED BLOOD CELL COUNT 4.07 M/uL (4.14-5.76); WHITE BLOOD CELL COUNT,WBC 6.1 K/uL (3.2-11.0)
[2023-03-02 07:55] LABS: INR 2.1; PROTHROMBIN TIME 20.5 sec (9.2-10.6)
[2023-03-02 08:08] LABS: A/G RATIO 0.9 (1.2-2.2); ALANINE AMINOTRANSFERASE,ALT 33 U/L (12-78); ALBUMIN 3.2 g/dL (3.4-5.0); ALKALINE PHOSPHATASE 90 U/L (46-116); ASPARTATE AMNIOTRANSFERASE,AST 32 U/L (15-37); BILIRUBIN TOTAL 0.9 mg/dL (0.2-1.0); BLOOD UREA NITROGEN,BUN 50 mg/dL (7-18); CALCIUM 9.3 mg/dL (8.5-10.1); CARBON DIOXIDE,CO2 29 mmol/L (21-32); CHLORIDE,CL 96 mmol/L (100-108); CREATININE 1.9 mg/dL (0.8-1.3); EST CRCL DRUG DOSING (CG) 32.56 mL/min; ESTIMATED GFR 36 mL/min (>60); GLUCOSE RANDOM 314 mg/dL (74-106); LIPASE 59 U/L (73-393); POTASSIUM,K 3.7 mmol/L (3.6-5.2); PROTEIN TOTAL,TP 6.6 g/dL (6.4-8.2); SODIUM,NA 132 mmol/L (140-148); TROPONIN I HIGH SENSITIVITY 46.7 pg/mL (<=60.3)
[2023-03-02 08:10] LABS: ANION GAP 10.7 mmol/L (5.0-14.0)
[2023-03-02 08:22] LABS: CORONAVIRUS COVID-19 NAA NEGATIVE (NEGATIVE); INFLUENZA A NAA NEGATIVE (NEGATIVE); INFLUENZA B NAA NEGATIVE (NEGATIVE); RESPIRATORY SYNCYTIAL VIR NAA NEGATIVE (NEGATIVE)
[2023-03-02 09:27] LABS: APPEARANCE,URINE CLEAR (CLEAR); BILIRUBIN,URINE NEGATIVE (NEGATIVE); COLOR,URINE YELLOW (YELLOW); GLUCOSE,URINE NEGATIVE (NEGATIVE); KETONES,URINE NEGATIVE (NEGATIVE); LEUKOCYTE ESTERASE,URINE NEGATIVE (NEGATIVE); NITRITE,URINE NEGATIVE (NEGATIVE); OCCULT BLOOD,URINE NEGATIVE (NEGATIVE); PROTEIN,URINE 30 mg/dL (NEGATIVE); UROBILINOGEN,URINE 0.2 EU/dL (0.2-1.0)
[2023-03-02 09:37] LABS: BACTERIA,URINE NOT SEEN; EPITHELIAL CELLS,URINE NOT SEEN; RBC,URINE NOT SEEN (0-5); WBC,URINE NOT SEEN (0-5)
[2023-03-02 09:38] LABS: AMORPHOUS SEDIMENT,URINE RARE; MUCUS,URINE NOT SEEN
[2023-03-02] MEDS ORDERED: Albuterol 0.083% 2.5 MG/3 ML Neb Soln NEB PRN (12:39)
[2023-03-02] MEDS ORDERED: Ondansetron 4 MG/2 ML SDV IV PRN (12:39)
[2023-03-02] MEDS ORDERED: Glucose Gel 15 GM in 37.5 GM Tube PO PRN (12:39)
[2023-03-02] MEDS ORDERED: 50% Dextrose in Water 50 ML Syringe IV PRN (12:39)
[2023-03-02] MEDS ORDERED: Acetaminophen 325 MG Tab PO PRN (12:39)
[2023-03-02] MEDS: LORazepam ORAL Concentrate 1MG/0.5ML U/D PO PRN ×3 (12:58→22:55)
[2023-03-02] MEDS: Morphine 10 MG/0.5 ML Oral Syringe PO PRN ×5 (12:59→22:14)
[2023-03-02] MEDS: Pantoprazole 40 MG Tab.CR PO SCH (16:01)
[2023-03-02] MEDS: Insulin Lispro 100 Unit/ML 3 ML KwikPen SUBCUT SCH ×2 (17:00→21:01)
[2023-03-02] MEDS ORDERED: Sodium Chloride 0.65% Nasal Spray 45 ML Bottle NAS PRN (19:50)
[2023-03-02] MEDS: Insulin Glargine,Human Rec. Analog 100 Units/ML 3 ML Pen SUBCUT SCH (21:03)
[2023-03-02] MEDS: Gabapentin 300 MG Cap PO SCH (21:10)
[2023-03-02] MEDS: Ticagrelor 90 MG Tab PO SCH (21:10)
[2023-03-03] MEDS: Morphine 10 MG/0.5 ML Oral Syringe PO PRN ×11 (00:20→18:42)
[2023-03-03] MEDS: LORazepam ORAL Concentrate 1MG/0.5ML U/D PO PRN ×4 (03:09→17:17)
[2023-03-03 04:51] LABS: INR 1.9; PROTHROMBIN TIME 18.2 sec (9.2-10.6)
[2023-03-03] MEDS: Insulin Lispro 100 Unit/ML 3 ML KwikPen SUBCUT SCH ×4 (07:36→21:14)
[2023-03-03] MEDS: Pantoprazole 40 MG Tab.CR PO SCH ×2 (08:34→17:25)
[2023-03-03] MEDS: Ticagrelor 90 MG Tab PO SCH ×2 (08:34→23:39)
[2023-03-03] MEDS: DULoxetine 20 MG Cap PO SCH (08:35)
[2023-03-03] MEDS: Gabapentin 300 MG Cap PO SCH ×2 (08:35→23:39)
[2023-03-03] MEDS: Metoprolol Succinate 50 MG Tab.ER PO SCH (08:35)
[2023-03-03] MEDS ORDERED: Magnesium Oxide 400 MG Tab PO SCH (09:00)
[2023-03-03] MEDS ORDERED: Isosorbide Mononitrate 30 MG Tab.ER PO SCH (09:00)
[2023-03-03] MEDS ORDERED: lamoTRIgine 100 MG Tab PO SCH (09:00)
[2023-03-03] MEDS: Insulin Glargine,Human Rec. Analog 100 Units/ML 3 ML Pen SUBCUT SCH (21:13)
[2023-03-04] MEDS: Morphine 10 MG/0.5 ML Oral Syringe PO PRN ×8 (01:05→18:49)
[2023-03-04] MEDS: LORazepam ORAL Concentrate 1MG/0.5ML U/D PO PRN ×7 (01:05→19:19)
[2023-03-04] MEDS: Pantoprazole 40 MG Tab.CR PO SCH (07:39)
[2023-03-04 08:08] VITALS: BP 113/45; PULSE 110
[2023-03-04] MEDS: DULoxetine 20 MG Cap PO SCH (09:28)
[2023-03-04] MEDS: Ticagrelor 90 MG Tab PO SCH (09:28)
[2023-03-04] MEDS: Gabapentin 300 MG Cap PO SCH (09:28)
[2023-03-04] MEDS: Metoprolol Succinate 50 MG Tab.ER PO SCH (09:54)
[2023-03-04] MEDS: Acetaminophen 650 MG Supp RECTAL PRN (10:07)
[2023-03-04] MEDS: HYDROmorphone 1 MG/ML Syringe IVPUSH PRN ×2 (20:23→22:53)
[2023-03-05] MEDS: Morphine 10 MG/0.5 ML Oral Syringe PO PRN ×9 (01:02→14:27)
[2023-03-05] MEDS: HYDROmorphone 1 MG/ML Syringe IVPUSH PRN ×6 (04:12→19:42)
[2023-03-05] MEDS: LORazepam ORAL Concentrate 1MG/0.5ML U/D PO PRN ×11 (05:11→19:42)
[2023-03-05] MEDS: Acetaminophen 650 MG Supp RECTAL PRN (05:48)
[2023-03-05] MEDS: Acetaminophen 650 MG Supp RECTAL SCH ×3 (09:20→18:07)
[2023-03-05] MEDS: Atropine Sulfate Ophth 2 ML Drops SL PRN ×2 (10:29→15:33)
== END 2023-03-05 20:15 | disposition expired | DRG 951 ==
LOC: JP.ED 06:56 → JP.MS 12:03
PROVIDERS: ADMIT Hospitalist; ATTEND Internal Medicine
DX: Z51.5 Encounter for palliative care (principal); R09.02 Hypoxemia; I13.0 Hypertensive heart and chronic kidney disease with heart failure and stage 1 through stage 4 chronic kidney disease, or unspecified chronic kidney disease; E87.1 Hypo-osmolality and hyponatremia; I25.5 Ischemic cardiomyopathy; F41.9 Anxiety disorder, unspecified; E11.22 Type 2 diabetes mellitus with diabetic chronic kidney disease; I25.10 Atherosclerotic heart disease of native coronary artery without angina pectoris; E11.65 Type 2 diabetes mellitus with hyperglycemia; F32.A Depression, unspecified; Z66 Do not resuscitate; Z20.822 Contact with and (suspected) exposure to COVID-19; I50.9 Heart failure, unspecified; E11.9 Type 2 diabetes mellitus without complications; I10 Essential (primary) hypertension; E78.00 Pure hypercholesterolemia, unspecified; G47.30 Sleep apnea, unspecified; Z96.649 Presence of unspecified artificial hip joint; N18.32 Chronic kidney disease, stage 3b; I48.91 Unspecified atrial fibrillation; Z95.1 Presence of aortocoronary bypass graft; Z95.4 Presence of other heart-valve replacement; I25.2 Old myocardial infarction; Z95.0 Presence of cardiac pacemaker; Z86.73 Personal history of transient ischemic attack (TIA), and cerebral infarction without residual deficits; Z95.5 Presence of coronary angioplasty implant and graft; Z88.2 Allergy status to sulfonamides; Z88.8 Allergy status to other drugs, medicaments and biological substances; Z91.041 Radiographic dye allergy status; Z79.4 Long term (current) use of insulin; Z79.01 Long term (current) use of anticoagulants; Z79.899 Other long term (current) drug therapy; Z95.2 Presence of prosthetic heart valve; Z90.49 Acquired absence of other specified parts of digestive tract; Z98.890 Other specified postprocedural states
CPT/HCPCS: 0241U; 36415; 51702; 71045; 71250; 74176; 80053; 81001; 82947; 83605; 83690; 83880; 84484; 85025; 85610; 96374; 99285; 99223; 99233; 99238; A9270-GY; J1170; J1815; J1815-GY; J3010; J3490